=== PATIENT | female | born 1935 | race Caucasian/White ===

== ENCOUNTER 2017-11-26 03:09 | Inpatient (IN) | payer MEDICARE, OTHER ==
[2017-11-26] MEDS: ASPIRIN 81 MG TAB PO (04:00)
[2017-11-26] MEDS: ONDANSETRON 4 MG INJ IV (04:00)
[2017-11-26] MEDS: morphine 2 MG INJ IV (04:01)
[2017-11-26 04:09] LABS: ADD MAN DIFF? NO
[2017-11-26 04:15] LABS: WHITE BLOOD COUNT 9.5 10^3/ul (4.8-10.8)
[2017-11-26 04:15] LABS: BASOPHILS % 0.3 % (0.0-2.0); EOSINOPHILS # 0.1 10^3/ul (0.0-0.5); EOSINOPHILS % 1.3 % (0.0-7.0); HEMATOCRIT 28.2 % (37.0-47.0); HEMOGLOBIN 9.1 g/dl (12.0-16.0); LYMPHOCYTES # 0.9 10^3/ul (0.8-2.9); LYMPHOCYTES % 9.2 % (15.0-51.0); MEAN CORPUSCULAR HEMOGLOBIN 31.3 pg (29.0-33.0); MEAN CORPUSCULAR HGB CONC 32.3 g/dl (32.0-37.0); MEAN CORPUSCULAR VOLUME 96.9 fl (82.0-101.0); MEAN PLATELET VOLUME 10.3 fl (7.4-10.4); MONOCYTE # 0.8 10^3/ul (0.3-0.9); MONOCYTES % 8.5 % (0.0-11.0); NEUTROPHIL # 7.6 10^3/ul (1.6-7.5); NEUTROPHILS % 80.2 % (39.0-77.0); PLATELET COUNT 308 10^3/UL (140-415); RED BLOOD COUNT 2.91 10^6/ul (4.20-5.40); RED CELL DISTRIBUTION WIDTH 12.7 % (11.5-14.5)
[2017-11-26] MEDS: SOD CHLORIDE 0.9% 1,000 ML IV (04:23)
[2017-11-26 04:26] LABS: LACTIC ACID 1.1 mmol/L (0.5-2.0)
[2017-11-26 04:29] LABS: ALANINE AMINOTRANSFERASE 18 IU/L (13-69); ALBUMIN 3.5 g/dl (3.3-4.9); ALBUMIN/GLOBULIN RATIO 1.16; ALKALINE PHOSPHATASE 65 IU/L (42-121); ANION GAP 15 (8-16); ASPARTATE AMINO TRANSFERASE 12 IU/L (15-46); BILIRUBIN,INDIRECT 0.3 mg/dl (0-1.1); BILIRUBIN,TOTAL 0.3 mg/dl (0.2-1.3); BLOOD UREA NITROGEN 57 mg/dl (7-20); CALCIUM 8.7 mg/dl (8.4-10.2); CARBON DIOXIDE 24 mmol/L (21-31); CHLORIDE 98 mmol/L (97-110); CREATININE 2.41 mg/dl (0.44-1.00); GLUCOSE 207 mg/dl (70-220); LIPASE 50 U/L (23-300); POTASSIUM 5.5 mmol/L (3.5-5.1); SODIUM 131 mmol/L (135-144); TOTAL PROTEIN 6.5 g/dl (6.1-8.1)
[2017-11-26 04:38] LABS: TROPONIN-I 0.054 ng/ml (0.000-0.120)
[2017-11-26] MEDS: LABETALOL HCL 20MG INJ IV (05:16)
[2017-11-26 05:19] LABS: ADD UMIC YES; UR ASCORBIC ACID NEGATIVE (NEGATIVE); UR BILIRUBIN (Dip) NEGATIVE (NEGATIVE); UR BLOOD (Dip) NEGATIVE (NEGATIVE); UR CLARITY CLEAR (CLEAR); UR COLOR STRAW (YELLOW); UR GLUCOSE (Dip) 1+ mg/dL (NEGATIVE); UR KETONES (Dip) TRACE mg/dL (NEGATIVE); UR LEUKOCYTE ESTERASE (Dip) NEGATIVE Leu/ul (NEGATIVE); UR NITRITE (Dip) NEGATIVE (NEGATIVE); UR RBC 0 /HPF (0-5); UR SPECIFIC GRAVITY (Dip) 1.006 (1.003-1.030); UR TOTAL PROTEIN (Dip) 2+ mg/dl (NEGATIVE); UR UROBILINOGEN (Dip) NEGATIVE (NEGATIVE); UR WBC 0 /HPF (0-5)
[2017-11-26] MEDS: hydrALAzine 20 MG INJ IV ×2 (06:08→19:10)
[2017-11-26] MEDS ORDERED: DEXTROSE 50% 50 ML SYRINGE IV ×3 (07:00→15:00)
[2017-11-26] MEDS: FAMOTIDINE 20 MG TAB PO (07:32)
[2017-11-26] MEDS: morphine 4 MG/ML VIAL IV (07:33)
[2017-11-26] MEDS: INSULIN REGULAR, HUMAN 100 UNIT/1 ML 3ML VIAL IVP (07:33)
[2017-11-26] MEDS ORDERED: ONDANSETRON 4 MG INJ IV (10:00)
[2017-11-26] MEDS ORDERED: ACETAMINOPHEN 325 MG TAB PO (10:00)
[2017-11-26] MEDS ORDERED: SOD CHLORIDE 0.9% 1,000 ML IV (14:13)
[2017-11-26] MEDS ORDERED: DOCUSATE SODIUM 100 MG CAP PO (14:30)
[2017-11-26] MEDS ORDERED: NACL 0.9% 3 ML SYG IV (14:30)
[2017-11-26] MEDS ORDERED: ACETAMINOPHEN 650 MG SUPP PR (14:30)
[2017-11-26] MEDS ORDERED: morphine 2 MG INJ IV (14:30)
[2017-11-26] MEDS ORDERED: LORAZEPAM 0.5 MG TAB PO (14:30)
[2017-11-26] MEDS ORDERED: HYDROCODONE/APAP (5/325) TAB PO (14:30)
[2017-11-26] MEDS ORDERED: GLUCOSE GEL 15 GRAM TUBE PO ×2 (15:00)
[2017-11-26] MEDS ORDERED: GLUCOSE GEL 15 GRAM TUBE BUCCAL (15:00)
[2017-11-26] MEDS ORDERED: GLUCAGON 1 MG INJ IM (15:00)
[2017-11-26 15:25] LABS: HEMOGLOBIN A1C 9.1 % (0-5.9)
[2017-11-26 15:54] LABS: CREATINE KINASE 47 IU/L (23-200)
[2017-11-26 16:08] LABS: CK INDEX 2.7; CK-MB 1.29 ng/ml (0.0-2.4); TROPONIN-I 0.058 ng/ml (0.000-0.120)
[2017-11-26] MEDS: NA POLYST SULFON 15 GM/60 ML BTL PO (18:13)
[2017-11-26] MEDS: INSULIN ASPART [NOVOLOG] 3 ML PEN SC ×3 (18:22→20:18)
[2017-11-26] MEDS: DIGOXIN 500 MCG INJ IV (19:04)
[2017-11-26] MEDS: DILTIAZEM 25 MG INJ IV ×2 (19:57→23:43)
[2017-11-26] MEDS: LUBIPROSTONE 24 MCG CAP PO (20:16)
[2017-11-26] MEDS: APIXABAN 5 MG TABLET PO (20:16)
[2017-11-26] MEDS: SENNA TAB PO (20:17)
[2017-11-26] MEDS: ISOSORBIDE DINITRATE 10 MG TAB PO (20:17)
[2017-11-26] MEDS: METOPROLOL 50 MG TAB PO (20:17)
[2017-11-26] MEDS: ATORVASTATIN 40 MG TAB PO (20:23)
[2017-11-26] MEDS ORDERED: morphine LIQ (10 MG/5 ML) CUP PO (22:30)
[2017-11-26 22:36] LABS: CREATINE KINASE 53 IU/L (23-200)
[2017-11-26 22:46] LABS: CK INDEX 2.9; CK-MB 1.53 ng/ml (0.0-2.4)
[2017-11-26 22:53] LABS: TROPONIN-I 0.056 ng/ml (0.000-0.120)
[2017-11-26 23:16] LABS: CREATININE,URINE RANDOM 37.31 mg/dl (20-320); PROTEIN/CREAT RATIO 2.25 RATIO
[2017-11-26 23:36] LABS: SODIUM,URINE RANDOM < 13 mmol/L (30-90)
[2017-11-27] MEDS: ACCU-CHEK XX (01:43)
[2017-11-27] MEDS: DILTIAZEM-D5W 125MG/125ML DRIP 125 ML IV (01:57)
[2017-11-27] MEDS: PANTOPRAZOLE (EC) 40 MG TAB PO (05:51)
[2017-11-27 08:13] LABS: ADD MAN DIFF? NO
[2017-11-27 08:15] LABS: WHITE BLOOD COUNT 8.7 10^3/ul (4.8-10.8)
[2017-11-27 08:15] LABS: BASOPHIL # 0.1 10^3/ul (0.0-0.1); BASOPHILS % 0.7 % (0.0-2.0); EOSINOPHILS # 0.1 10^3/ul (0.0-0.5); EOSINOPHILS % 1.2 % (0.0-7.0); HEMATOCRIT 29.7 % (37.0-47.0); HEMOGLOBIN 9.3 g/dl (12.0-16.0); LYMPHOCYTES # 0.8 10^3/ul (0.8-2.9); LYMPHOCYTES % 9.3 % (15.0-51.0); MEAN CORPUSCULAR HEMOGLOBIN 30.8 pg (29.0-33.0); MEAN CORPUSCULAR HGB CONC 31.3 g/dl (32.0-37.0); MEAN CORPUSCULAR VOLUME 98.3 fl (82.0-101.0); MEAN PLATELET VOLUME 10.9 fl (7.4-10.4); MONOCYTE # 0.9 10^3/ul (0.3-0.9); MONOCYTES % 10.7 % (0.0-11.0); NEUTROPHIL # 6.7 10^3/ul (1.6-7.5); NEUTROPHILS % 77.8 % (39.0-77.0); PLATELET COUNT 326 10^3/UL (140-415); RED BLOOD COUNT 3.02 10^6/ul (4.20-5.40); RED CELL DISTRIBUTION WIDTH 13.3 % (11.5-14.5)
[2017-11-27] MEDS: INSULIN GLARGINE [LANTus] (100 UNITS/ML) SYG SC (08:24)
[2017-11-27] MEDS: INSULIN ASPART [NOVOLOG] 3 ML PEN SC ×7 (08:24→20:07)
[2017-11-27 08:36] LABS: HEMOGLOBIN A1C 8.7 % (0-5.9)
[2017-11-27 08:41] LABS: ALANINE AMINOTRANSFERASE 24 IU/L (13-69); ALBUMIN 3.6 g/dl (3.3-4.9); ALKALINE PHOSPHATASE 67 IU/L (42-121); ANION GAP 21 (8-16); ASPARTATE AMINO TRANSFERASE 12 IU/L (15-46); BILIRUBIN,INDIRECT 0.4 mg/dl (0-1.1); BILIRUBIN,TOTAL 0.4 mg/dl (0.2-1.3); BLOOD UREA NITROGEN 45 mg/dl (7-20); CALCIUM 8.8 mg/dl (8.4-10.2); CARBON DIOXIDE 25 mmol/L (21-31); CHLORIDE 95 mmol/L (97-110); CHOL/HDL RATIO 2.6 RATIO; CHOLESTEROL 109 mg/dl (100-200); CREATININE 2.11 mg/dl (0.44-1.00); GLUCOSE 176 mg/dl (70-220); HDL CHOLESTEROL 41 mg/dl (33-92); LDL CHOLESTEROL,CALCULATED 51 mg/dl; MAGNESIUM 2.5 mg/dl (1.7-2.5); POTASSIUM 5.1 mmol/L (3.5-5.1); SODIUM 136 mmol/L (135-144); TRIGLYCERIDES 86 mg/dl (0-149)
[2017-11-27 08:42] LABS: CREATINE KINASE 45 IU/L (23-200)
[2017-11-27] MEDS: ONDANSETRON 4 MG INJ IV ×3 (08:54→18:42)
[2017-11-27] MEDS: MAGNESIUM OXIDE 400 MG TAB PO (08:54)
[2017-11-27] MEDS: LUBIPROSTONE 24 MCG CAP PO ×2 (08:54→20:06)
[2017-11-27] MEDS: ASPIRIN 81 MG TAB PO (08:54)
[2017-11-27] MEDS: APIXABAN 5 MG TABLET PO ×2 (08:55→20:07)
[2017-11-27] MEDS: LINAGLIPTIN 5 MG TABLET PO (08:56)
[2017-11-27 08:57] LABS: FREE THYROXINE INDEX (Calc) 3.88 ug/ml (0.65-3.89); T3 UPTAKE 44.6 % (23.5-40.5); T4 (THYROXINE) 8.7 ug/dl (5.5-11.0)
[2017-11-27] MEDS: FUROSEMIDE 20 MG INJ IV (08:58)
[2017-11-27] MEDS: ISOSORBIDE DINITRATE 10 MG TAB PO ×3 (08:59→20:08)
[2017-11-27] MEDS: METOPROLOL 50 MG TAB PO ×3 (08:59→20:08)
[2017-11-27] MEDS ORDERED: FUROSEMIDE 20 MG TAB PO (09:00)
[2017-11-27] MEDS ORDERED: NON-FORMULARY/PATIENT OWN MED (Sitagliptin* (Januvia*) 50 MG) PO (09:00)
[2017-11-27] MEDS: DILTIAZEM 60 MG TAB PO (13:43)
[2017-11-27] MEDS: SENNA TAB PO (20:06)
[2017-11-27] MEDS: ATORVASTATIN 40 MG TAB PO (20:07)
[2017-11-27] MEDS: traMADol 50 MG TAB PO (22:15)
[2017-11-27] MEDS: DILTIAZEM 30 MG TAB PO (22:29)
[2017-11-28] MEDS: ACCU-CHEK XX (01:08)
[2017-11-28] MEDS: DILTIAZEM 30 MG TAB PO ×3 (05:25→22:21)
[2017-11-28] MEDS: PANTOPRAZOLE (EC) 40 MG TAB PO (05:26)
[2017-11-28] MEDS: INSULIN ASPART [NOVOLOG] 3 ML PEN SC ×7 (07:55→20:25)
[2017-11-28] MEDS: LUBIPROSTONE 24 MCG CAP PO ×2 (08:40→20:23)
[2017-11-28] MEDS: APIXABAN 5 MG TABLET PO ×2 (08:40→20:24)
[2017-11-28] MEDS: ASPIRIN 81 MG TAB PO (08:41)
[2017-11-28] MEDS: FUROSEMIDE 20 MG INJ IV (08:41)
[2017-11-28] MEDS: MAGNESIUM OXIDE 400 MG TAB PO (08:41)
[2017-11-28 08:42] LABS: ANION GAP 12 (8-16); BLOOD UREA NITROGEN 40 mg/dl (7-20); CALCIUM 8.7 mg/dl (8.4-10.2); CARBON DIOXIDE 28 mmol/L (21-31); CHLORIDE 101 mmol/L (97-110); CREATININE 2.15 mg/dl (0.44-1.00); GLUCOSE 131 mg/dl (70-220); POTASSIUM 4.4 mmol/L (3.5-5.1); SODIUM 137 mmol/L (135-144)
[2017-11-28] MEDS: METOPROLOL 50 MG TAB PO ×3 (08:42→20:25)
[2017-11-28] MEDS: ISOSORBIDE DINITRATE 10 MG TAB PO ×3 (08:42→20:25)
[2017-11-28] MEDS: LINAGLIPTIN 5 MG TABLET PO (08:42)
[2017-11-28] MEDS: INSULIN GLARGINE [LANTus] (100 UNITS/ML) SYG SC (10:09)
[2017-11-28] MEDS: ONDANSETRON 4 MG INJ IV ×2 (10:16→18:26)
[2017-11-28] MEDS: traMADol 50 MG TAB PO ×2 (12:40→22:20)
[2017-11-28] MEDS: D5W-0.45 NACL + KCL 20 MEQ 1,000 ML IV (14:37)
[2017-11-28] MEDS: SENNA TAB PO (20:23)
[2017-11-28] MEDS: ATORVASTATIN 40 MG TAB PO (20:25)
[2017-11-28] MEDS: DOXAZOSIN 2 MG TAB PO (20:36)
[2017-11-29] MEDS: HYDROCODONE/APAP (5/325) TAB PO ×2 (00:55→14:10)
[2017-11-29] MEDS: hydrALAzine 20 MG INJ IV (01:05)
[2017-11-29] MEDS: ACCU-CHEK XX (01:06)
[2017-11-29] MEDS: D5W-0.45 NACL + KCL 20 MEQ 1,000 ML IV (03:57)
[2017-11-29] MEDS: PANTOPRAZOLE (EC) 40 MG TAB PO (05:34)
[2017-11-29] MEDS: FUROSEMIDE 20 MG TAB PO (05:34)
[2017-11-29] MEDS: DILTIAZEM 30 MG TAB PO ×3 (05:35→21:41)
[2017-11-29] MEDS: INSULIN ASPART [NOVOLOG] 3 ML PEN SC ×7 (07:42→21:00)
[2017-11-29] MEDS: INSULIN GLARGINE [LANTus] (100 UNITS/ML) SYG SC (07:53)
[2017-11-29] MEDS: LUBIPROSTONE 24 MCG CAP PO ×2 (08:20→21:40)
[2017-11-29] MEDS: ISOSORBIDE DINITRATE 10 MG TAB PO ×3 (08:21→21:40)
[2017-11-29] MEDS: APIXABAN 5 MG TABLET PO ×2 (08:21→20:18)
[2017-11-29] MEDS: ASPIRIN 81 MG TAB PO (08:21)
[2017-11-29] MEDS: MAGNESIUM OXIDE 400 MG TAB PO (08:21)
[2017-11-29] MEDS: METOPROLOL 50 MG TAB PO ×3 (08:22→20:20)
[2017-11-29] MEDS: LINAGLIPTIN 5 MG TABLET PO (08:22)
[2017-11-29 09:03] LABS: ADD MAN DIFF? NO
[2017-11-29 09:11] LABS: WHITE BLOOD COUNT 7.7 10^3/ul (4.8-10.8)
[2017-11-29 09:11] LABS: BASOPHILS % 0.3 % (0.0-2.0); EOSINOPHILS # 0.1 10^3/ul (0.0-0.5); EOSINOPHILS % 0.8 % (0.0-7.0); HEMOGLOBIN 8.5 g/dl (12.0-16.0); LYMPHOCYTES # 0.6 10^3/ul (0.8-2.9); LYMPHOCYTES % 8.1 % (15.0-51.0); MEAN CORPUSCULAR HEMOGLOBIN 31.7 pg (29.0-33.0); MEAN CORPUSCULAR HGB CONC 31.5 g/dl (32.0-37.0); MEAN CORPUSCULAR VOLUME 100.7 fl (82.0-101.0); MEAN PLATELET VOLUME 10.3 fl (7.4-10.4); MONOCYTE # 0.9 10^3/ul (0.3-0.9); MONOCYTES % 11.6 % (0.0-11.0); NEUTROPHILS % 78.5 % (39.0-77.0); PLATELET COUNT 279 10^3/UL (140-415); RED BLOOD COUNT 2.68 10^6/ul (4.20-5.40); RED CELL DISTRIBUTION WIDTH 13.3 % (11.5-14.5)
[2017-11-29 09:39] LABS: URIC ACID 8.8 mg/dl (3.1-7.9)
[2017-11-29 09:42] LABS: ANION GAP 12 (8-16); BLOOD UREA NITROGEN 40 mg/dl (7-20); CALCIUM 8.3 mg/dl (8.4-10.2); CARBON DIOXIDE 29 mmol/L (21-31); CHLORIDE 99 mmol/L (97-110); CREATININE 2.08 mg/dl (0.44-1.00); GLUCOSE 209 mg/dl (70-220); POTASSIUM 4.9 mmol/L (3.5-5.1); SODIUM 135 mmol/L (135-144)
[2017-11-29 09:43] LABS: B-TYPE NATRIURETIC PEPTIDE 19900 PG/ML (0-450)
[2017-11-29] MEDS: FUROSEMIDE 20 MG INJ IV (17:27)
[2017-11-29] MEDS: ATORVASTATIN 40 MG TAB PO (20:17)
[2017-11-29] MEDS ORDERED: ALBUMIN HUMAN 25% 100 ML IV (21:00)
[2017-11-29] MEDS ORDERED: METOCLOPRAMIDE 10 MG INJ IV (21:00)
[2017-11-29] MEDS: SENNA TAB PO (21:40)
[2017-11-29] MEDS: DOXAZOSIN 2 MG TAB PO (21:41)
[2017-11-30] MEDS: ACETAMINOPHEN 325 MG TAB PO (00:36)
[2017-11-30] MEDS: ACCU-CHEK XX (02:00)
[2017-11-30] MEDS: DILTIAZEM 30 MG TAB PO ×3 (06:03→21:47)
[2017-11-30] MEDS: FUROSEMIDE 20 MG INJ IV ×2 (06:04→18:09)
[2017-11-30 06:09] LABS: ANION GAP 11 (8-16); BLOOD UREA NITROGEN 40 mg/dl (7-20); CALCIUM 8.3 mg/dl (8.4-10.2); CARBON DIOXIDE 27 mmol/L (21-31); CHLORIDE 99 mmol/L (97-110); GLUCOSE 159 mg/dl (70-220); POTASSIUM 5.1 mmol/L (3.5-5.1); SODIUM 132 mmol/L (135-144)
[2017-11-30] MEDS: PANTOPRAZOLE (EC) 40 MG TAB PO (06:16)
[2017-11-30] MEDS: INSULIN ASPART [NOVOLOG] 3 ML PEN SC ×8 (08:00→20:59)
[2017-11-30] MEDS: METOPROLOL 50 MG TAB PO ×3 (08:44→20:53)
[2017-11-30] MEDS: MAGNESIUM OXIDE 400 MG TAB PO (08:44)
[2017-11-30] MEDS: ISOSORBIDE DINITRATE 10 MG TAB PO ×3 (08:44→20:53)
[2017-11-30] MEDS: LINAGLIPTIN 5 MG TABLET PO (08:44)
[2017-11-30] MEDS: APIXABAN 5 MG TABLET PO ×2 (08:44→20:53)
[2017-11-30] MEDS: LUBIPROSTONE 24 MCG CAP PO ×2 (08:44→20:53)
[2017-11-30] MEDS: INSULIN GLARGINE [LANTus] (100 UNITS/ML) SYG SC (08:50)
[2017-11-30] MEDS: ASPIRIN 81 MG TAB PO (08:56)
[2017-11-30] MEDS: ATORVASTATIN 40 MG TAB PO (20:53)
[2017-11-30] MEDS: DOXAZOSIN 2 MG TAB PO (20:54)
[2017-11-30] MEDS: SENNA TAB PO (20:54)
[2017-11-30] MEDS ORDERED: MISOPROSTOL 100 MCG TAB PO (22:00)
[2017-11-30] MEDS ORDERED: MISOPROSTOL 200 MCG TAB PO (22:49)
[2017-12-01] MEDS: MISOPROSTOL 200 MCG TAB PO ×3 (00:20→17:56)
[2017-12-01] MEDS: CLONIDINE 0.2 MG/24 HR PATCH TRANSDERM (00:20)
[2017-12-01] MEDS: ALLOPURINOL 100 MG TAB GTB ×3 (00:21→21:16)
[2017-12-01] MEDS: ACCU-CHEK XX (02:00)
[2017-12-01] MEDS: FUROSEMIDE 20 MG INJ IV ×2 (06:43→17:56)
[2017-12-01] MEDS: PANTOPRAZOLE (EC) 40 MG TAB PO (06:44)
[2017-12-01] MEDS: DILTIAZEM 30 MG TAB PO ×3 (06:44→21:15)
[2017-12-01 08:22] LABS: B-TYPE NATRIURETIC PEPTIDE 15700 PG/ML (0-450)
[2017-12-01] MEDS: INSULIN GLARGINE [LANTus] (100 UNITS/ML) SYG SC (08:48)
[2017-12-01] MEDS: INSULIN ASPART [NOVOLOG] 3 ML PEN SC ×7 (08:48→21:00)
[2017-12-01 09:10] LABS: IRON 31 ug/dl (35-150)
[2017-12-01 09:39] LABS: ALANINE AMINOTRANSFERASE 14 IU/L (13-69); ALBUMIN 3.2 g/dl (3.3-4.9); ALBUMIN/GLOBULIN RATIO 1.23; ALKALINE PHOSPHATASE 50 IU/L (42-121); ANION GAP 13 (8-16); ASPARTATE AMINO TRANSFERASE 11 IU/L (15-46); BILIRUBIN,INDIRECT 0.3 mg/dl (0-1.1); BILIRUBIN,TOTAL 0.3 mg/dl (0.2-1.3); BLOOD UREA NITROGEN 43 mg/dl (7-20); CALCIUM 8.4 mg/dl (8.4-10.2); CARBON DIOXIDE 27 mmol/L (21-31); CHLORIDE 98 mmol/L (97-110); CREATININE 2.31 mg/dl (0.44-1.00); GLUCOSE 189 mg/dl (70-220); PHOSPHORUS 3.8 mg/dl (2.5-4.9); POTASSIUM 4.9 mmol/L (3.5-5.1); SODIUM 133 mmol/L (135-144); TOTAL PROTEIN 5.8 g/dl (6.1-8.1)
[2017-12-01] MEDS: LUBIPROSTONE 24 MCG CAP PO ×2 (09:44→21:23)
[2017-12-01] MEDS: LINAGLIPTIN 5 MG TABLET PO (09:45)
[2017-12-01] MEDS: MAGNESIUM OXIDE 400 MG TAB PO (09:45)
[2017-12-01] MEDS: ASPIRIN 81 MG TAB PO (09:45)
[2017-12-01] MEDS: APIXABAN 5 MG TABLET PO ×2 (09:45→21:16)
[2017-12-01] MEDS: METOPROLOL 50 MG TAB PO ×3 (09:46→21:16)
[2017-12-01] MEDS: ONDANSETRON 4 MG INJ IV (09:47)
[2017-12-01] MEDS: ISOSORBIDE DINITRATE 10 MG TAB PO ×3 (09:47→21:14)
[2017-12-01 10:27] LABS: % IRON SATURATION 12 % SAT (22-52)
[2017-12-01 10:35] LABS: TOTAL IRON BINDING CAPACITY 252 ug/dl (241-421)
[2017-12-01 11:53] LABS: HEMOGLOBIN A1C 8.7 % (0-5.9)
[2017-12-01] MEDS: HYDROCODONE/APAP (5/325) TAB PO (13:13)
[2017-12-01] MEDS: DOXAZOSIN 2 MG TAB PO (21:15)
[2017-12-01] MEDS: ATORVASTATIN 40 MG TAB PO (21:15)
[2017-12-01] MEDS: SENNA TAB PO (21:17)
[2017-12-01] MEDS: SOD FERRIC GLUC COMPLX 125 MG in SOD CHLORIDE 0.9% 100 ML IVPB (21:23)
[2017-12-02] MEDS: ACCU-CHEK XX (02:00)
[2017-12-02] MEDS: HYDROCODONE/APAP (5/325) TAB PO (03:20)
[2017-12-02] MEDS: FUROSEMIDE 20 MG INJ IV ×2 (05:57→17:41)
[2017-12-02] MEDS: DILTIAZEM 30 MG TAB PO ×2 (05:57→15:32)
[2017-12-02] MEDS: PANTOPRAZOLE (EC) 40 MG TAB PO (05:57)
[2017-12-02] MEDS: INSULIN ASPART [NOVOLOG] 3 ML PEN SC ×6 (08:00→17:41)
[2017-12-02] MEDS: LUBIPROSTONE 24 MCG CAP PO (08:26)
[2017-12-02] MEDS: MISOPROSTOL 200 MCG TAB PO ×2 (08:26→17:41)
[2017-12-02] MEDS: ALLOPURINOL 100 MG TAB GTB (08:26)
[2017-12-02] MEDS: ISOSORBIDE DINITRATE 10 MG TAB PO ×2 (08:27→12:43)
[2017-12-02] MEDS: METOPROLOL 50 MG TAB PO ×2 (08:27→12:41)
[2017-12-02] MEDS: MAGNESIUM OXIDE 400 MG TAB PO (08:27)
[2017-12-02] MEDS: APIXABAN 5 MG TABLET PO (08:27)
[2017-12-02] MEDS: ASPIRIN 81 MG TAB PO (08:28)
[2017-12-02] MEDS: LINAGLIPTIN 5 MG TABLET PO (08:33)
[2017-12-02] MEDS: INSULIN GLARGINE [LANTus] (100 UNITS/ML) SYG SC (08:37)
[2017-12-02] MEDS: SOD FERRIC GLUC COMPLX 125 MG in SOD CHLORIDE 0.9% 100 ML IVPB (17:06)
[2017-12-02] MEDS ORDERED: NACL 0.9% 3 ML SYG IV (18:30)
[2017-12-03] MEDS ORDERED: INSULIN GLARGINE [LANTus] (100 UNITS/ML) SYG SC (08:00)
== END 2017-12-02 18:30 | DRG 308 ==
LOC: E/R 03:09 → TEL 09:55 → 2NE 11-29 19:19
DX: I48.92 Unspecified atrial flutter (principal); I50.23 Acute on chronic systolic (congestive) heart failure; I13.0 Hypertensive heart and chronic kidney disease with heart failure and stage 1 through stage 4 chronic kidney disease, or unspecified chronic kidney disease; E87.1 Hypo-osmolality and hyponatremia; N17.9 Acute kidney failure, unspecified; N18.3 Chronic kidney disease, stage 3 (moderate); E11.22 Type 2 diabetes mellitus with diabetic chronic kidney disease; I25.10 Atherosclerotic heart disease of native coronary artery without angina pectoris; E78.00 Pure hypercholesterolemia, unspecified; K21.9 Gastro-esophageal reflux disease without esophagitis; E11.21 Type 2 diabetes mellitus with diabetic nephropathy; I25.2 Old myocardial infarction; I27.20 Pulmonary hypertension, unspecified; K59.00 Constipation, unspecified; I48.91 Unspecified atrial fibrillation; E87.5 Hyperkalemia; D50.9 Iron deficiency anemia, unspecified; D63.8 Anemia in other chronic diseases classified elsewhere; Z95.5 Presence of coronary angioplasty implant and graft; Z79.4 Long term (current) use of insulin; Z79.82 Long term (current) use of aspirin; Z91.81 History of falling
CPT/HCPCS: 36415; 71045; 72170; 73560; 74176; 76775; 80048; 80053; 80061; 81001; 81003; 82550; 82553; 82570; 82962; 83036; 83540; 83605; 83690; 83735; 83880; 84100; 84300; 84436; 84443; 84479; 84484; 84560; 85025; 87081; 89190; 93005; 93306; 96361; 96374; 96375; 96376; 97110; 97162; 97165; 97530; 99285-25; G0378

== ENCOUNTER 2017-12-02 18:40 | Inpatient (IN) | payer MEDICARE, OTHER ==
[2017-12-02] MEDS ORDERED: morphine LIQ (10 MG/5 ML) CUP PO (20:30)
[2017-12-02] MEDS ORDERED: ACETAMINOPHEN 650 MG SUPP PR (20:30)
[2017-12-02] MEDS ORDERED: DOCUSATE SODIUM 100 MG CAP PO (20:30)
[2017-12-02] MEDS ORDERED: NACL 0.9% 3 ML SYG IV (20:30)
[2017-12-02] MEDS ORDERED: hydrALAzine 20 MG INJ IV (20:30)
[2017-12-02] MEDS ORDERED: LORAZEPAM 0.5 MG TAB PO (20:30)
[2017-12-02] MEDS ORDERED: HYDROCODONE/APAP (5/325) TAB PO (20:30)
[2017-12-02] MEDS: ATORVASTATIN 40 MG TAB PO (20:41)
[2017-12-02] MEDS: APIXABAN 5 MG TABLET PO (20:42)
[2017-12-02] MEDS: ALLOPURINOL 100 MG TAB GTB (20:42)
[2017-12-02] MEDS ORDERED: traMADol 50 MG TAB PO (21:00)
[2017-12-02] MEDS ORDERED: GLUCOSE GEL 15 GRAM TUBE BUCCAL (21:00)
[2017-12-02] MEDS ORDERED: GLUCAGON 1 MG INJ IM (21:00)
[2017-12-02] MEDS ORDERED: GLUCOSE GEL 15 GRAM TUBE PO ×2 (21:00)
[2017-12-02] MEDS ORDERED: DEXTROSE 50% 50 ML SYRINGE IV ×2 (21:00)
[2017-12-02] MEDS: INSULIN ASPART [NOVOLOG] 3 ML PEN SC (21:30)
[2017-12-02] MEDS: SENNA TAB PO (21:39)
[2017-12-02] MEDS: ISOSORBIDE DINITRATE 10 MG TAB PO (21:40)
[2017-12-02] MEDS: METOPROLOL 50 MG TAB PO (21:41)
[2017-12-02] MEDS: DILTIAZEM 30 MG TAB PO (21:41)
[2017-12-02] MEDS: LUBIPROSTONE 24 MCG CAP PO (21:42)
[2017-12-02] MEDS: DOXAZOSIN 2 MG TAB PO (21:42)
[2017-12-02] MEDS: ONDANSETRON 4 MG INJ IV (21:46)
[2017-12-02] MEDS ORDERED: BISACODYL 10 MG SUPP PR (22:30)
[2017-12-02] MEDS ORDERED: LACTULOSE 30ML CUP PO (22:30)
[2017-12-02 23:47] LABS: ADD UMIC YES; UR ASCORBIC ACID NEGATIVE (NEGATIVE); UR BACTERIA FEW /HPF (NONE SEEN); UR BILIRUBIN (Dip) NEGATIVE (NEGATIVE); UR BLOOD (Dip) NEGATIVE (NEGATIVE); UR CLARITY CLEAR (CLEAR); UR COLOR YELLOW (YELLOW); UR GLUCOSE (Dip) NEGATIVE (NEGATIVE); UR KETONES (Dip) NEGATIVE (NEGATIVE); UR LEUKOCYTE ESTERASE (Dip) NEGATIVE Leu/ul (NEGATIVE); UR MUCUS FEW /HPF (NONE SEEN); UR NITRITE (Dip) NEGATIVE (NEGATIVE); UR RBC 1 /HPF (0-5); UR TOTAL PROTEIN (Dip) 1+ mg/dl (NEGATIVE); UR UROBILINOGEN (Dip) NEGATIVE (NEGATIVE); UR WBC 2 /HPF (0-5)
[2017-12-03] MEDS: ACCU-CHEK XX (02:00)
[2017-12-03 06:31] LABS: ADD MAN DIFF? NO
[2017-12-03 06:37] LABS: WHITE BLOOD COUNT 6.3 10^3/ul (4.8-10.8)
[2017-12-03 06:37] LABS: BASOPHILS % 0.3 % (0.0-2.0); EOSINOPHILS # 0.1 10^3/ul (0.0-0.5); EOSINOPHILS % 1.6 % (0.0-7.0); HEMATOCRIT 24.1 % (37.0-47.0); HEMOGLOBIN 7.8 g/dl (12.0-16.0); LYMPHOCYTES # 1.2 10^3/ul (0.8-2.9); LYMPHOCYTES % 19.2 % (15.0-51.0); MEAN CORPUSCULAR HGB CONC 32.4 g/dl (32.0-37.0); MEAN CORPUSCULAR VOLUME 98.8 fl (82.0-101.0); MEAN PLATELET VOLUME 9.9 fl (7.4-10.4); MONOCYTE # 0.8 10^3/ul (0.3-0.9); MONOCYTES % 12.5 % (0.0-11.0); NEUTROPHIL # 4.2 10^3/ul (1.6-7.5); NEUTROPHILS % 65.9 % (39.0-77.0); PLATELET COUNT 220 10^3/UL (140-415); RED BLOOD COUNT 2.44 10^6/ul (4.20-5.40); RED CELL DISTRIBUTION WIDTH 13.1 % (11.5-14.5)
[2017-12-03] MEDS: PANTOPRAZOLE (EC) 40 MG TAB PO (06:42)
[2017-12-03] MEDS: DILTIAZEM 30 MG TAB PO ×3 (06:46→21:53)
[2017-12-03] MEDS: FUROSEMIDE 20 MG INJ IV ×2 (06:46→19:14)
[2017-12-03] MEDS: MAGNESIUM HYDROXIDE 30ML CUP PO (06:47)
[2017-12-03 06:52] LABS: ALANINE AMINOTRANSFERASE 17 IU/L (13-69); ALBUMIN 2.8 g/dl (3.3-4.9); ALBUMIN/GLOBULIN RATIO 1.12; ALKALINE PHOSPHATASE 43 IU/L (42-121); ANION GAP 10 (8-16); ASPARTATE AMINO TRANSFERASE 9 IU/L (15-46); BILIRUBIN,INDIRECT 0.2 mg/dl (0-1.1); BILIRUBIN,TOTAL 0.2 mg/dl (0.2-1.3); BLOOD UREA NITROGEN 53 mg/dl (7-20); CALCIUM 8.3 mg/dl (8.4-10.2); CARBON DIOXIDE 28 mmol/L (21-31); CHLORIDE 98 mmol/L (97-110); CREATININE 2.58 mg/dl (0.44-1.00); GLUCOSE 71 mg/dl (70-220); POTASSIUM 4.4 mmol/L (3.5-5.1); SODIUM 132 mmol/L (135-144); TOTAL PROTEIN 5.3 g/dl (6.1-8.1)
[2017-12-03] MEDS: INSULIN ASPART [NOVOLOG] 3 ML PEN SC ×7 (07:35→21:00)
[2017-12-03] MEDS ORDERED: MISOPROSTOL 100 MCG TAB PO (07:35)
[2017-12-03] MEDS: INSULIN GLARGINE [LANTus] (100 UNITS/ML) SYG SC (08:00)
[2017-12-03] MEDS: LUBIPROSTONE 24 MCG CAP PO ×2 (10:07→21:52)
[2017-12-03] MEDS: MAGNESIUM OXIDE 400 MG TAB PO (10:07)
[2017-12-03] MEDS: ALLOPURINOL 100 MG TAB GTB ×2 (10:08→21:54)
[2017-12-03] MEDS: METOPROLOL 50 MG TAB PO ×3 (10:08→21:55)
[2017-12-03] MEDS: ASPIRIN 81 MG TAB PO (10:08)
[2017-12-03] MEDS: LINAGLIPTIN 5 MG TABLET PO (10:08)
[2017-12-03] MEDS: APIXABAN 5 MG TABLET PO ×2 (10:09→22:02)
[2017-12-03] MEDS: MISOPROSTOL 100 MCG TAB PO ×2 (10:09→17:39)
[2017-12-03] MEDS: ISOSORBIDE DINITRATE 10 MG TAB PO ×3 (10:11→21:53)
[2017-12-03 16:24] LABS: IMMEDIATE SPIN CROSSMATCH 1 1
[2017-12-03] MEDS ORDERED: CLONIDINE 0.1 MG/24 HR PATCH TRANSDERM (19:00)
[2017-12-03] MEDS: SOD FERRIC GLUC COMPLX 125 MG in SOD CHLORIDE 0.9% 100 ML IVPB (19:40)
[2017-12-03] MEDS: ATORVASTATIN 40 MG TAB PO (21:54)
[2017-12-03] MEDS: DOXAZOSIN 2 MG TAB PO (21:54)
[2017-12-03] MEDS: SENNA TAB PO (21:55)
[2017-12-03] MEDS: CLONIDINE 0.1 MG/24 HR PATCH TRANSDERM (23:26)
[2017-12-04] MEDS: ACETAMINOPHEN 325 MG TAB PO ×2 (00:54→12:20)
[2017-12-04] MEDS: ACCU-CHEK XX (02:00)
[2017-12-04] MEDS: ONDANSETRON 4 MG INJ IV (03:35)
[2017-12-04] MEDS: PANTOPRAZOLE (EC) 40 MG TAB PO (06:52)
[2017-12-04] MEDS: FUROSEMIDE 20 MG TAB PO ×2 (06:52→17:54)
[2017-12-04] MEDS: DILTIAZEM 30 MG TAB PO ×2 (06:52→15:15)
[2017-12-04] MEDS: MISOPROSTOL 100 MCG TAB PO ×2 (08:03→17:54)
[2017-12-04] MEDS: INSULIN ASPART [NOVOLOG] 3 ML PEN SC ×6 (08:06→16:50)
[2017-12-04] MEDS: INSULIN GLARGINE [LANTus] (100 UNITS/ML) SYG SC (08:08)
[2017-12-04] MEDS: ALLOPURINOL 100 MG TAB GTB (09:16)
[2017-12-04] MEDS: ISOSORBIDE DINITRATE 10 MG TAB PO ×2 (09:16→12:19)
[2017-12-04] MEDS: ASPIRIN 81 MG TAB PO (09:16)
[2017-12-04] MEDS: MAGNESIUM OXIDE 400 MG TAB PO (09:16)
[2017-12-04] MEDS: LINAGLIPTIN 5 MG TABLET PO (09:16)
[2017-12-04] MEDS: LUBIPROSTONE 24 MCG CAP PO (09:16)
[2017-12-04] MEDS: APIXABAN 5 MG TABLET PO (09:16)
[2017-12-04] MEDS: METOPROLOL 50 MG TAB PO ×2 (09:17→12:19)
[2017-12-04] MEDS: NITROGLYCERIN (SL) 0.4 MG TAB SL (19:11)
[2017-12-04 19:49] LABS: ANION GAP 12 (8-16); BLOOD UREA NITROGEN 56 mg/dl (7-20); CALCIUM 8.2 mg/dl (8.4-10.2); CARBON DIOXIDE 26 mmol/L (21-31); CHLORIDE 96 mmol/L (97-110); CREATINE KINASE 29 IU/L (23-200); CREATININE 2.34 mg/dl (0.44-1.00); GLUCOSE 162 mg/dl (70-220); POTASSIUM 5.3 mmol/L (3.5-5.1); SODIUM 129 mmol/L (135-144)
[2017-12-04 20:00] LABS: CK INDEX 1.5; CK-MB 0.43 ng/ml (0.0-2.4); TROPONIN-I < 0.010 ng/ml (0.000-0.120)
[2017-12-04 20:02] LABS: D-DIMER 2077.23 ng/ml (<460)
[2017-12-04] MEDS ORDERED: LUBIPROSTONE 24 MCG CAP PO (21:30)
[2017-12-04] MEDS ORDERED: traMADol 50 MG TAB PO (21:30)
[2017-12-04] MEDS ORDERED: LORAZEPAM 0.5 MG TAB PO (21:30)
[2017-12-05] MEDS ORDERED: NON-FORMULARY/PATIENT OWN MED (Aspirin (Low Dose Aspirin) 81 MG) PO (09:00)
[2017-12-05] MEDS ORDERED: MAGNESIUM OXIDE 400 MG TAB PO (09:00)
[2017-12-05] MEDS ORDERED: NON-FORMULARY/PATIENT OWN MED (Esomeprazole Mag Trihydrate (Nexium) 40 MG) PO (09:00)
[2017-12-05] MEDS ORDERED: INSULIN GLARGINE [LANTus] (100 UNITS/ML) SYG SC (09:00)
[2017-12-05] MEDS ORDERED: METOPROLOL 50 MG TAB PO (09:00)
[2017-12-05] MEDS ORDERED: NON-FORMULARY/PATIENT OWN MED (Sitagliptin* (Januvia*) 50 MG) PO (09:00)
[2017-12-05] MEDS ORDERED: NON-FORMULARY/PATIENT OWN MED (Linagliptin (Tradjenta) 5 MG) PO (09:00)
[2017-12-05] MEDS ORDERED: FUROSEMIDE 20 MG TAB PO (10:00)
[2017-12-05] MEDS ORDERED: ATORVASTATIN 40 MG TAB PO (21:00)
[2017-12-05] MEDS ORDERED: SENNA TAB PO (21:00)
[2017-12-07] MEDS ORDERED: CLONIDINE 0.2 MG/24 HR PATCH TRANSDERM (22:00)
== END 2017-12-04 19:29 | disposition short-term general hospital (02) | DRG 945 ==
LOC: VRC 12-04 10:39
PROVIDERS: Family Medicine
PROC: F07Z5ZZ Bed Mobility Treatment (ICD-10-PCS; principal; 2017-12-03)
PROC: F07Z8ZZ Transfer Training Treatment (ICD-10-PCS; 2017-12-03)
PROC: F07Z9ZZ Gait Training/Functional Ambulation Treatment (ICD-10-PCS; 2017-12-03)
PROC: F08Z2ZZ Grooming/Personal Hygiene Treatment (ICD-10-PCS; 2017-12-03)
PROC: F08Z1ZZ Dressing Techniques Treatment (ICD-10-PCS; 2017-12-03)
PROC: F08Z0ZZ Bathing/Showering Techniques Treatment (ICD-10-PCS; 2017-12-03)
PROC: 30233N1 Transfusion of Nonautologous Red Blood Cells into Peripheral Vein, Percutaneous Approach (ICD-10-PCS; 2017-12-03)
DX: R53.81 Other malaise (principal); I50.23 Acute on chronic systolic (congestive) heart failure; I13.0 Hypertensive heart and chronic kidney disease with heart failure and stage 1 through stage 4 chronic kidney disease, or unspecified chronic kidney disease; I48.92 Unspecified atrial flutter; E87.1 Hypo-osmolality and hyponatremia; N17.9 Acute kidney failure, unspecified; R26.89 Other abnormalities of gait and mobility; R07.9 Chest pain, unspecified; R00.2 Palpitations; D63.1 Anemia in chronic kidney disease; D50.9 Iron deficiency anemia, unspecified; E11.22 Type 2 diabetes mellitus with diabetic chronic kidney disease; E11.21 Type 2 diabetes mellitus with diabetic nephropathy; E66.01 Morbid (severe) obesity due to excess calories; E78.5 Hyperlipidemia, unspecified; I25.10 Atherosclerotic heart disease of native coronary artery without angina pectoris; I27.20 Pulmonary hypertension, unspecified; I48.91 Unspecified atrial fibrillation; K59.00 Constipation, unspecified; M19.90 Unspecified osteoarthritis, unspecified site; N18.3 Chronic kidney disease, stage 3 (moderate); Z74.09 Other reduced mobility; Z96.652 Presence of left artificial knee joint; Z91.81 History of falling; Z95.1 Presence of aortocoronary bypass graft; Z68.35 Body mass index [BMI] 35.0-35.9, adult; Z95.5 Presence of coronary angioplasty implant and graft; Z79.4 Long term (current) use of insulin; Z79.01 Long term (current) use of anticoagulants; Z79.82 Long term (current) use of aspirin
CPT/HCPCS: 36430; 71045; 80048; 80053; 81001; 82550; 82553; 82962; 84484; 85025; 85378; 86850; 86900; 86901; 86920; 87081; 87086; 93005; 97110; 97116; 97163; 97167; 97530; 97535

== ENCOUNTER 2017-12-04 19:54 | Inpatient (IN) | payer MEDICARE, OTHER ==
[2017-12-04] MEDS: INSULIN ASPART [NOVOLOG] 3 ML PEN SC (21:30)
[2017-12-04 21:54] LABS: D-DIMER 2051.24 ng/ml (<460)
[2017-12-04] MEDS ORDERED: GLUCOSE GEL 15 GRAM TUBE BUCCAL (22:00)
[2017-12-04] MEDS ORDERED: GLUCOSE GEL 15 GRAM TUBE PO ×2 (22:00)
[2017-12-04] MEDS ORDERED: DEXTROSE 50% 50 ML SYRINGE IV ×2 (22:00)
[2017-12-04] MEDS ORDERED: GLUCAGON 1 MG INJ IM (22:00)
[2017-12-04 23:15] LABS: MAGNESIUM 1.8 mg/dl (1.7-2.5)
[2017-12-04 23:27] LABS: TROPONIN-I 0.011 ng/ml (0.000-0.120)
[2017-12-04] MEDS ORDERED: morphine LIQ (10 MG/5 ML) CUP PO (23:30)
[2017-12-04] MEDS ORDERED: BISACODYL 10 MG SUPP PR (23:30)
[2017-12-04] MEDS ORDERED: DOCUSATE SODIUM 100 MG CAP PO (23:30)
[2017-12-04] MEDS ORDERED: MAGNESIUM HYDROXIDE 30ML CUP PO (23:30)
[2017-12-04] MEDS ORDERED: hydrALAzine 20 MG INJ IV (23:30)
[2017-12-04] MEDS ORDERED: ACETAMINOPHEN 650 MG SUPP PR (23:30)
[2017-12-04] MEDS ORDERED: traMADol 50 MG TAB PO (23:30)
[2017-12-04] MEDS ORDERED: LORAZEPAM 0.5 MG TAB PO (23:30)
[2017-12-04] MEDS: ALBUTEROL/IPRATROPIUM (NEB) 3 ML AMP HHN (23:58)
[2017-12-05] MEDS ORDERED: NITROGLYCERIN (SL) 0.4 MG TAB SL
[2017-12-05] MEDS: ONDANSETRON 4 MG INJ IV (00:49)
[2017-12-05] MEDS: SODIUM CHLORIDE 1 GM TAB PO ×4 (00:49→21:39)
[2017-12-05] MEDS: FUROSEMIDE 20 MG INJ IV ×3 (00:50→18:23)
[2017-12-05] MEDS: ENOXAPARIN 40 MG/0.4 ML SYG SC ×2 (01:19→08:37)
[2017-12-05] MEDS: ACCU-CHEK XX (01:21)
[2017-12-05 01:48] LABS: TROPONIN-I 0.014 ng/ml (0.000-0.120)
[2017-12-05] MEDS ORDERED: FUROSEMIDE 20 MG TAB PO (06:00)
[2017-12-05] MEDS: PANTOPRAZOLE (EC) 40 MG TAB PO (07:01)
[2017-12-05] MEDS: INSULIN ASPART [NOVOLOG] 3 ML PEN SC ×7 (07:55→21:00)
[2017-12-05] MEDS: INSULIN GLARGINE [LANTus] (100 UNITS/ML) SYG SC (08:00)
[2017-12-05] MEDS: MISOPROSTOL 100 MCG TAB PO ×2 (08:21→18:22)
[2017-12-05] MEDS: ISOSORBIDE DINITRATE 10 MG TAB PO ×3 (08:21→21:39)
[2017-12-05] MEDS: MAGNESIUM OXIDE 400 MG TAB PO (08:21)
[2017-12-05] MEDS: LUBIPROSTONE 24 MCG CAP PO ×2 (08:22→21:39)
[2017-12-05] MEDS: ALLOPURINOL 100 MG TAB PO ×2 (08:22→21:39)
[2017-12-05] MEDS: ASPIRIN (EC) 81 MG TAB PO (08:22)
[2017-12-05] MEDS: METOPROLOL 50 MG TAB PO ×3 (08:22→22:50)
[2017-12-05] MEDS: DILTIAZEM 30 MG TAB PO ×3 (08:23→21:40)
[2017-12-05] MEDS: LINAGLIPTIN 5 MG TABLET PO (08:23)
[2017-12-05] MEDS: ALBUTEROL/IPRATROPIUM (NEB) 3 ML AMP HHN ×3 (08:52→23:03)
[2017-12-05 09:19] LABS: ADD MAN DIFF? NO
[2017-12-05 09:24] LABS: BASOPHILS % 0.7 % (0.0-2.0); EOSINOPHILS # 0.1 10^3/ul (0.0-0.5); EOSINOPHILS % 2.2 % (0.0-7.0); HEMOGLOBIN 9.1 g/dl (12.0-16.0); IMMATURE GRANS #M 0.04 10^3/ul; IMMATURE GRANS % (M) 0.7 %; LYMPHOCYTES # 1.1 10^3/ul (0.8-2.9); LYMPHOCYTES % 18.3 % (15.0-51.0); MEAN CORPUSCULAR HEMOGLOBIN 30.3 pg (29.0-33.0); MEAN CORPUSCULAR HGB CONC 31.4 g/dl (32.0-37.0); MEAN CORPUSCULAR VOLUME 96.7 fl (82.0-101.0); MEAN PLATELET VOLUME 10.4 fl (7.4-10.4); MONOCYTE # 0.7 10^3/ul (0.3-0.9); MONOCYTES % 11.3 % (0.0-11.0); NEUTROPHIL # 3.9 10^3/ul (1.6-7.5); NEUTROPHILS % 66.8 % (39.0-77.0); PLATELET COUNT 183 10^3/UL (140-415); RED CELL DISTRIBUTION WIDTH 14.2 % (11.5-14.5)
[2017-12-05 09:24] LABS: WHITE BLOOD COUNT 5.9 10^3/ul (4.8-10.8)
[2017-12-05 09:50] LABS: IRON 65 ug/dl (35-150)
[2017-12-05 09:56] LABS: ALANINE AMINOTRANSFERASE 17 IU/L (13-69); ALBUMIN/GLOBULIN RATIO 1.25; ALKALINE PHOSPHATASE 44 IU/L (42-121); ANION GAP 16 (8-16); ASPARTATE AMINO TRANSFERASE 12 IU/L (15-46); BILIRUBIN,INDIRECT 0.1 mg/dl (0-1.1); BILIRUBIN,TOTAL 0.1 mg/dl (0.2-1.3); BLOOD UREA NITROGEN 55 mg/dl (7-20); CALCIUM 8.4 mg/dl (8.4-10.2); CARBON DIOXIDE 28 mmol/L (21-31); CHLORIDE 95 mmol/L (97-110); CREATININE 2.31 mg/dl (0.44-1.00); GLUCOSE 128 mg/dl (70-220); POTASSIUM 4.6 mmol/L (3.5-5.1); SODIUM 134 mmol/L (135-144); TOTAL PROTEIN 5.4 g/dl (6.1-8.1)
[2017-12-05 10:00] LABS: % IRON SATURATION 25 % SAT (22-52); TOTAL IRON BINDING CAPACITY 258 ug/dl (241-421)
[2017-12-05 10:04] LABS: TROPONIN-I 0.011 ng/ml (0.000-0.120)
[2017-12-05] MEDS: LACTULOSE 30ML CUP PO (18:22)
[2017-12-05] MEDS: ATORVASTATIN 40 MG TAB PO (21:39)
[2017-12-05] MEDS: SENNA/DOCUSATE NA (8.6MG/50MG) TAB PO (21:40)
[2017-12-05] MEDS: ACETAMINOPHEN 325 MG TAB PO (22:49)
[2017-12-05] MEDS: DOXAZOSIN 2 MG TAB PO (22:50)
[2017-12-06] MEDS: ACCU-CHEK XX (01:36)
[2017-12-06] MEDS: PANTOPRAZOLE (EC) 40 MG TAB PO (06:56)
[2017-12-06] MEDS: FUROSEMIDE 20 MG INJ IV ×2 (06:57→18:09)
[2017-12-06] MEDS: LACTULOSE 30ML CUP PO (06:59)
[2017-12-06 07:34] LABS: ALANINE AMINOTRANSFERASE 20 IU/L (13-69); ALBUMIN 3.1 g/dl (3.3-4.9); ALBUMIN/GLOBULIN RATIO 1.34; ALKALINE PHOSPHATASE 43 IU/L (42-121); ANION GAP 12 (8-16); ASPARTATE AMINO TRANSFERASE 11 IU/L (15-46); BILIRUBIN,INDIRECT 0.2 mg/dl (0-1.1); BILIRUBIN,TOTAL 0.2 mg/dl (0.2-1.3); BLOOD UREA NITROGEN 54 mg/dl (7-20); CALCIUM 8.1 mg/dl (8.4-10.2); CARBON DIOXIDE 28 mmol/L (21-31); CHLORIDE 97 mmol/L (97-110); CREATININE 2.15 mg/dl (0.44-1.00); GLUCOSE 148 mg/dl (70-220); POTASSIUM 4.4 mmol/L (3.5-5.1); SODIUM 133 mmol/L (135-144); TOTAL PROTEIN 5.4 g/dl (6.1-8.1)
[2017-12-06] MEDS: INSULIN ASPART [NOVOLOG] 3 ML PEN SC ×7 (07:55→21:00)
[2017-12-06] MEDS: INSULIN GLARGINE [LANTus] (100 UNITS/ML) SYG SC (08:00)
[2017-12-06] MEDS: ALBUTEROL/IPRATROPIUM (NEB) 3 ML AMP HHN ×2 (08:41→15:50)
[2017-12-06] MEDS: LUBIPROSTONE 24 MCG CAP PO ×2 (09:07→21:35)
[2017-12-06] MEDS: MISOPROSTOL 100 MCG TAB PO ×2 (09:07→18:08)
[2017-12-06] MEDS: SODIUM CHLORIDE 1 GM TAB PO ×3 (09:07→21:36)
[2017-12-06] MEDS: ISOSORBIDE DINITRATE 10 MG TAB PO ×3 (09:07→21:36)
[2017-12-06] MEDS: ALLOPURINOL 100 MG TAB PO ×2 (09:08→21:36)
[2017-12-06] MEDS: MAGNESIUM OXIDE 400 MG TAB PO (09:08)
[2017-12-06] MEDS: ASPIRIN (EC) 81 MG TAB PO (09:08)
[2017-12-06] MEDS: LINAGLIPTIN 5 MG TABLET PO (09:08)
[2017-12-06] MEDS: METOPROLOL 50 MG TAB PO ×3 (09:08→21:37)
[2017-12-06] MEDS: DILTIAZEM 30 MG TAB PO ×3 (09:08→21:36)
[2017-12-06] MEDS: ENOXAPARIN 40 MG/0.4 ML SYG SC (09:17)
[2017-12-06] MEDS: ONDANSETRON 4 MG INJ IV (09:19)
[2017-12-06] MEDS: ACETAMINOPHEN 325 MG TAB PO (21:35)
[2017-12-06] MEDS: SENNA/DOCUSATE NA (8.6MG/50MG) TAB PO (21:36)
[2017-12-06] MEDS: DOXAZOSIN 2 MG TAB PO (21:36)
[2017-12-06] MEDS: ATORVASTATIN 40 MG TAB PO (21:36)
[2017-12-07] MEDS: ACCU-CHEK XX (01:54)
[2017-12-07] MEDS: PANTOPRAZOLE (EC) 40 MG TAB PO (05:20)
[2017-12-07] MEDS: FUROSEMIDE 20 MG INJ IV ×2 (05:20→17:44)
[2017-12-07] MEDS: ALBUTEROL/IPRATROPIUM (NEB) 3 ML AMP HHN ×3 (07:53→14:59)
[2017-12-07] MEDS: INSULIN ASPART [NOVOLOG] 3 ML PEN SC ×7 (07:55→20:59)
[2017-12-07] MEDS: INSULIN GLARGINE [LANTus] (100 UNITS/ML) SYG SC ×2 (08:00→20:30)
[2017-12-07] MEDS: DILTIAZEM 30 MG TAB PO ×3 (08:37→21:40)
[2017-12-07] MEDS: ASPIRIN (EC) 81 MG TAB PO (08:37)
[2017-12-07] MEDS: ALLOPURINOL 100 MG TAB PO ×2 (08:38→21:38)
[2017-12-07] MEDS: ISOSORBIDE DINITRATE 10 MG TAB PO ×3 (08:38→21:39)
[2017-12-07] MEDS: MISOPROSTOL 100 MCG TAB PO ×2 (08:38→17:42)
[2017-12-07] MEDS: METOPROLOL 50 MG TAB PO ×3 (08:38→21:38)
[2017-12-07] MEDS: SODIUM CHLORIDE 1 GM TAB PO ×3 (08:38→21:36)
[2017-12-07] MEDS: LUBIPROSTONE 24 MCG CAP PO ×2 (08:38→21:36)
[2017-12-07] MEDS: MAGNESIUM OXIDE 400 MG TAB PO (08:38)
[2017-12-07] MEDS: LINAGLIPTIN 5 MG TABLET PO (08:38)
[2017-12-07] MEDS: ENOXAPARIN 40 MG/0.4 ML SYG SC (08:55)
[2017-12-07] MEDS: ACETAMINOPHEN 325 MG TAB PO (09:04)
[2017-12-07] MEDS ORDERED: MAGNESIUM OXIDE 400 MG TAB PO (20:30)
[2017-12-07] MEDS ORDERED: traMADol 50 MG TAB PO (20:30)
[2017-12-07] MEDS ORDERED: LORAZEPAM 0.5 MG TAB PO ×2 (20:30→21:30)
[2017-12-07] MEDS ORDERED: ATORVASTATIN 40 MG TAB PO (21:00)
[2017-12-07] MEDS ORDERED: LUBIPROSTONE 24 MCG CAP PO (21:00)
[2017-12-07] MEDS ORDERED: METOPROLOL 50 MG TAB PO (21:00)
[2017-12-07] MEDS: ATORVASTATIN 40 MG TAB PO (21:36)
[2017-12-07] MEDS: SENNA TAB PO (21:37)
[2017-12-07] MEDS: DOXAZOSIN 2 MG TAB PO (21:39)
[2017-12-07] MEDS: APIXABAN 5 MG TABLET PO ×2 (21:41→21:44)
[2017-12-07] MEDS: HYDROCODONE/APAP (5/325) TAB PO (21:45)
[2017-12-08] MEDS: ALBUTEROL/IPRATROPIUM (NEB) 3 ML AMP HHN ×3 (00:15→16:00)
[2017-12-08] MEDS: ACCU-CHEK XX (02:00)
[2017-12-08] MEDS: PANTOPRAZOLE (EC) 40 MG TAB PO (06:55)
[2017-12-08] MEDS: INSULIN ASPART [NOVOLOG] 3 ML PEN SC ×6 (07:55→17:55)
[2017-12-08] MEDS: INSULIN GLARGINE [LANTus] (100 UNITS/ML) SYG SC (08:00)
[2017-12-08 08:03] LABS: ADD MAN DIFF? NO
[2017-12-08 08:06] LABS: BASOPHILS % 0.4 % (0.0-2.0); EOSINOPHILS # 0.2 10^3/ul (0.0-0.5); EOSINOPHILS % 2.3 % (0.0-7.0); HEMATOCRIT 27.7 % (37.0-47.0); HEMOGLOBIN 8.5 g/dl (12.0-16.0); IMMATURE GRANS #M 0.04 10^3/ul; IMMATURE GRANS % (M) 0.6 %; LYMPHOCYTES # 1.1 10^3/ul (0.8-2.9); LYMPHOCYTES % 15.2 % (15.0-51.0); MEAN CORPUSCULAR HEMOGLOBIN 30.4 pg (29.0-33.0); MEAN CORPUSCULAR HGB CONC 30.7 g/dl (32.0-37.0); MEAN CORPUSCULAR VOLUME 98.9 fl (82.0-101.0); MEAN PLATELET VOLUME 10.5 fl (7.4-10.4); MONOCYTE # 0.7 10^3/ul (0.3-0.9); MONOCYTES % 9.8 % (0.0-11.0); NEUTROPHIL # 5.1 10^3/ul (1.6-7.5); NEUTROPHILS % 71.7 % (39.0-77.0); PLATELET COUNT 151 10^3/UL (140-415); RED CELL DISTRIBUTION WIDTH 13.8 % (11.5-14.5)
[2017-12-08 08:06] LABS: WHITE BLOOD COUNT 7.1 10^3/ul (4.8-10.8)
[2017-12-08 08:22] LABS: MAGNESIUM 1.7 mg/dl (1.7-2.5)
[2017-12-08 08:22] LABS: PHOSPHORUS 3.6 mg/dl (2.5-4.9)
[2017-12-08 08:24] LABS: ALANINE AMINOTRANSFERASE 21 IU/L (13-69); ALBUMIN/GLOBULIN RATIO 1.07; ALKALINE PHOSPHATASE 46 IU/L (42-121); ANION GAP 11 (8-16); ASPARTATE AMINO TRANSFERASE 15 IU/L (15-46); BILIRUBIN,INDIRECT 0.1 mg/dl (0-1.1); BILIRUBIN,TOTAL 0.1 mg/dl (0.2-1.3); BLOOD UREA NITROGEN 52 mg/dl (7-20); CALCIUM 8.5 mg/dl (8.4-10.2); CARBON DIOXIDE 31 mmol/L (21-31); CHLORIDE 98 mmol/L (97-110); CREATININE 2.04 mg/dl (0.44-1.00); GLUCOSE 153 mg/dl (70-220); POTASSIUM 4.2 mmol/L (3.5-5.1); SODIUM 136 mmol/L (135-144); TOTAL PROTEIN 5.8 g/dl (6.1-8.1)
[2017-12-08 08:32] LABS: INR 1.04; PROTIME 13.7 Sec (11.9-14.9); PT RATIO 1.1
[2017-12-08 08:33] LABS: PARTIAL THROMBOPLASTIN TIME 29.7 Sec (25.0-35.0)
[2017-12-08] MEDS: DILTIAZEM 30 MG TAB PO ×2 (10:07→15:34)
[2017-12-08] MEDS: ALLOPURINOL 100 MG TAB PO (10:07)
[2017-12-08] MEDS: LUBIPROSTONE 24 MCG CAP PO (10:08)
[2017-12-08] MEDS: FUROSEMIDE 20 MG TAB PO (10:08)
[2017-12-08] MEDS: ASPIRIN (EC) 81 MG TAB PO (10:08)
[2017-12-08] MEDS: APIXABAN 5 MG TABLET PO (10:08)
[2017-12-08] MEDS: MISOPROSTOL 100 MCG TAB PO ×2 (10:09→19:03)
[2017-12-08] MEDS: ISOSORBIDE DINITRATE 10 MG TAB PO ×2 (10:10→15:33)
[2017-12-08] MEDS: METOPROLOL 50 MG TAB PO ×2 (10:10→15:33)
[2017-12-08] MEDS: LINAGLIPTIN 5 MG TABLET PO (10:10)
[2017-12-08] MEDS: MAGNESIUM OXIDE 400 MG TAB PO (10:24)
[2017-12-08] MEDS: ACETAMINOPHEN 325 MG TAB PO (15:32)
[2017-12-09] MEDS ORDERED: CLONIDINE 0.1 MG/24 HR PATCH TRANSDERM (23:30)
[2018-01-08] MEDS ORDERED: EPINEPHrine 0.1 MG/ML SYG
[2018-01-08] MEDS ORDERED: NA BICARBONATE 8.4% 50 ML SYG
== END 2017-12-08 20:00 | disposition home or self-care (01) | DRG 308 ==
LOC: TEL 19:54
PROVIDERS: Family Medicine
DX: I48.0 Paroxysmal atrial fibrillation (principal); I50.23 Acute on chronic systolic (congestive) heart failure; E87.1 Hypo-osmolality and hyponatremia; I13.0 Hypertensive heart and chronic kidney disease with heart failure and stage 1 through stage 4 chronic kidney disease, or unspecified chronic kidney disease; N17.9 Acute kidney failure, unspecified; I48.92 Unspecified atrial flutter; E87.5 Hyperkalemia; E11.22 Type 2 diabetes mellitus with diabetic chronic kidney disease; E11.21 Type 2 diabetes mellitus with diabetic nephropathy; E66.01 Morbid (severe) obesity due to excess calories; N18.3 Chronic kidney disease, stage 3 (moderate); D63.8 Anemia in other chronic diseases classified elsewhere; K59.00 Constipation, unspecified; R09.02 Hypoxemia; I25.10 Atherosclerotic heart disease of native coronary artery without angina pectoris; K21.9 Gastro-esophageal reflux disease without esophagitis; K58.9 Irritable bowel syndrome, unspecified; Z96.652 Presence of left artificial knee joint; F32.9 Major depressive disorder, single episode, unspecified; D50.9 Iron deficiency anemia, unspecified; R33.9 Retention of urine, unspecified; I25.2 Old myocardial infarction; Z68.39 Body mass index [BMI] 39.0-39.9, adult; Z79.4 Long term (current) use of insulin; Z79.02 Long term (current) use of antithrombotics/antiplatelets; Z79.82 Long term (current) use of aspirin; Z95.5 Presence of coronary angioplasty implant and graft
CPT/HCPCS: 80053; 82533; 82962; 83540; 83735; 84100; 84484; 85025; 85378; 85610; 85730; 93005; 93970; 94640; 94664; 97110; 97161

== ENCOUNTER 2018-01-03 18:05 | Inpatient (IN) | payer MEDICARE, OTHER ==
[2018-01-03] MEDS ORDERED: FUROSEMIDE 40 MG INJ IV (18:09)
[2018-01-03] MEDS ORDERED: ASPIRIN 81 MG TAB PO (18:09)
[2018-01-03] MEDS: DILTIAZEM 25 MG INJ IV ×2 (18:31→22:56)
[2018-01-03] MEDS: NITROGLYCERIN 2% 1 GM OINT PKT TD (18:32)
[2018-01-03 18:33] LABS: ADD MAN DIFF? NO
[2018-01-03] MEDS: MAGNESIUM SULFATE 2 GM/50 ML 50 ML IVPB ×2 (18:34→22:54)
[2018-01-03 18:40] LABS: Arterial Base Excess 0.5 mmol/L (-3.0-3); Arterial Blood Gas Oxygen Sat 96.5 mmHG (95.0-100.0); Arterial COHb 0.4 % (0.0-3.0); Arterial Fraction of Oxyhgb 96.1 % (93.0-99.0); Arterial HCO3 26.4 mmol/L (22.0-26.0); Arterial MetHb 0 % (0.0-1.5); Arterial Total Hemglobin 10.5 g/dl (12.0-18.0); Arterial pCO2 48.3 mmhg (35-45); Blood Gas IEPAP 15/5; Blood Gas PS 10; MODE MASK - BIPAP; Site Right Brachial
[2018-01-03 18:55] LABS: BASOPHILS % 0.3 % (0.0-2.0); EOSINOPHILS % 0.3 % (0.0-7.0); HEMATOCRIT 30.3 % (37.0-47.0); HEMOGLOBIN 9.5 g/dl (12.0-16.0); LYMPHOCYTES # 0.7 10^3/ul (0.8-2.9); LYMPHOCYTES % 7.6 % (15.0-51.0); MEAN CORPUSCULAR HEMOGLOBIN 30.9 pg (29.0-33.0); MEAN CORPUSCULAR HGB CONC 31.4 g/dl (32.0-37.0); MEAN CORPUSCULAR VOLUME 98.7 fl (82.0-101.0); MEAN PLATELET VOLUME 10.4 fl (7.4-10.4); MONOCYTE # 0.7 10^3/ul (0.3-0.9); MONOCYTES % 7.8 % (0.0-11.0); NEUTROPHIL # 7.6 10^3/ul (1.6-7.5); NEUTROPHILS % 83.2 % (39.0-77.0); PLATELET COUNT 221 10^3/UL (140-415); RED BLOOD COUNT 3.07 10^6/ul (4.20-5.40); RED CELL DISTRIBUTION WIDTH 14.6 % (11.5-14.5)
[2018-01-03 18:55] LABS: WHITE BLOOD COUNT 9.1 10^3/ul (4.8-10.8)
[2018-01-03 19:19] LABS: PARTIAL THROMBOPLASTIN TIME 26.4 Sec (25.0-35.0); PROTIME 14.4 Sec (11.9-14.9); PT RATIO 1.1
[2018-01-03 19:20] LABS: ANION GAP 16 (8-16); BLOOD UREA NITROGEN 57 mg/dl (7-20); CARBON DIOXIDE 29 mmol/L (21-31); CHLORIDE 93 mmol/L (97-110); CREATININE 2.22 mg/dl (0.44-1.00); GLUCOSE 271 mg/dl (70-220); MAGNESIUM 1.5 mg/dl (1.7-2.5); POTASSIUM 4.2 mmol/L (3.5-5.1); SODIUM 134 mmol/L (135-144)
[2018-01-03 19:32] LABS: B-TYPE NATRIURETIC PEPTIDE 22900 PG/ML (0-450); TROPONIN-I 0.043 ng/ml (0.000-0.120)
[2018-01-03] MEDS: NITROGLYCERIN 50 MG/D5W (PMX) 250 ML IV (19:47)
[2018-01-03] MEDS: FUROSEMIDE 40 MG INJ IV (19:59)
[2018-01-03] MEDS: ASPIRIN 81 MG TAB PO (19:59)
[2018-01-03 22:37] LABS: IRON 54 ug/dl (35-150)
[2018-01-03 22:40] LABS: HEMOGLOBIN A1C 8.3 % (0-5.9)
[2018-01-03 22:47] LABS: % IRON SATURATION 21 % SAT (22-52); TOTAL IRON BINDING CAPACITY 263 ug/dl (241-421)
[2018-01-03] MEDS: FUROSEMIDE 20 MG INJ IV (22:54)
[2018-01-03 22:57] LABS: DIGOXIN < 0.4 ng/ml (1.0-2.0)
[2018-01-03] MEDS ORDERED: GLUCAGON 1 MG INJ IM (23:00)
[2018-01-03] MEDS ORDERED: GLUCOSE GEL 15 GRAM TUBE PO ×2 (23:00)
[2018-01-03] MEDS ORDERED: GLUCOSE GEL 15 GRAM TUBE BUCCAL (23:00)
[2018-01-03] MEDS: ALBUTEROL/IPRATROPIUM (NEB) 3 ML AMP HHN (23:23)
[2018-01-03] MEDS: APIXABAN 5 MG TABLET PO (23:30)
[2018-01-03] MEDS: LUBIPROSTONE 24 MCG CAP PO (23:30)
[2018-01-03] MEDS: PANTOPRAZOLE (EC) 40 MG TAB PO (23:30)
[2018-01-04] MEDS: traMADol 50 MG TAB PO (00:42)
[2018-01-04 00:58] LABS: CREATINE KINASE 28 IU/L (23-200)
[2018-01-04 01:09] LABS: CK INDEX 2.6; CK-MB 0.72 ng/ml (0.0-2.4); TROPONIN-I 0.045 ng/ml (0.000-0.120)
[2018-01-04] MEDS: LORAZEPAM 0.5 MG TAB PO (01:36)
[2018-01-04] MEDS: FUROSEMIDE 20 MG INJ IV ×2 (05:39→17:43)
[2018-01-04 05:52] LABS: ADD MAN DIFF? NO
[2018-01-04 06:09] LABS: WHITE BLOOD COUNT 9.3 10^3/ul (4.8-10.8)
[2018-01-04 06:09] LABS: BASOPHILS % 0.3 % (0.0-2.0); EOSINOPHILS # 0.1 10^3/ul (0.0-0.5); HEMATOCRIT 27.6 % (37.0-47.0); HEMOGLOBIN 8.8 g/dl (12.0-16.0); LYMPHOCYTES % 10.7 % (15.0-51.0); MEAN CORPUSCULAR HEMOGLOBIN 30.8 pg (29.0-33.0); MEAN CORPUSCULAR HGB CONC 31.9 g/dl (32.0-37.0); MEAN CORPUSCULAR VOLUME 96.5 fl (82.0-101.0); MEAN PLATELET VOLUME 10.4 fl (7.4-10.4); MONOCYTES % 10.4 % (0.0-11.0); NEUTROPHIL # 7.1 10^3/ul (1.6-7.5); PLATELET COUNT 216 10^3/UL (140-415); RED BLOOD COUNT 2.86 10^6/ul (4.20-5.40); RED CELL DISTRIBUTION WIDTH 14.7 % (11.5-14.5)
[2018-01-04 06:18] LABS: CHOL/HDL RATIO 2.7 RATIO; HDL CHOLESTEROL 42 mg/dl (33-92); LDL CHOLESTEROL,CALCULATED 47 mg/dl; TRIGLYCERIDES 141 mg/dl (0-149)
[2018-01-04 06:18] LABS: CHOLESTEROL 117 mg/dl (100-200)
[2018-01-04 06:35] LABS: AMMONIA < 9 umol/l (9-30)
[2018-01-04 06:36] LABS: ALANINE AMINOTRANSFERASE 26 IU/L (13-69); ALBUMIN 2.9 g/dl (3.3-4.9); ALBUMIN/GLOBULIN RATIO 1.07; ALKALINE PHOSPHATASE 47 IU/L (42-121); ANION GAP 13 (8-16); ASPARTATE AMINO TRANSFERASE 17 IU/L (15-46); BILIRUBIN,INDIRECT 0.3 mg/dl (0-1.1); BILIRUBIN,TOTAL 0.3 mg/dl (0.2-1.3); BLOOD UREA NITROGEN 58 mg/dl (7-20); CALCIUM 8.9 mg/dl (8.4-10.2); CARBON DIOXIDE 31 mmol/L (21-31); CHLORIDE 94 mmol/L (97-110); CREATININE 1.93 mg/dl (0.44-1.00); GLUCOSE 206 mg/dl (70-220); POTASSIUM 3.9 mmol/L (3.5-5.1); SODIUM 134 mmol/L (135-144); TOTAL PROTEIN 5.6 g/dl (6.1-8.1)
[2018-01-04 07:23] LABS: CREATINE KINASE 26 IU/L (23-200)
[2018-01-04 07:26] LABS: CARCINOEMBRYONIC ANTIGEN 2.5 ng/ml (0.0-5.0)
[2018-01-04 07:36] LABS: CK INDEX 3.2; CK-MB 0.83 ng/ml (0.0-2.4)
[2018-01-04] MEDS: ALBUTEROL/IPRATROPIUM (NEB) 3 ML AMP HHN ×2 (08:26→16:50)
[2018-01-04 08:30] LABS: D-DIMER 3055.43 ng/ml (<460)
[2018-01-04] MEDS: ASPIRIN 81 MG TAB PO (08:38)
[2018-01-04] MEDS: LUBIPROSTONE 24 MCG CAP PO ×2 (08:51→22:10)
[2018-01-04] MEDS: APIXABAN 5 MG TABLET PO ×2 (08:51→22:10)
[2018-01-04] MEDS: POLYETHYLENE GLYCOL 17 GM PACKET PO ×3 (08:52→22:09)
[2018-01-04] MEDS: FUROSEMIDE 20 MG TAB PO (08:54)
[2018-01-04] MEDS: METOPROLOL 50 MG TAB PO ×3 (08:54→22:11)
[2018-01-04] MEDS: INSULIN GLARGINE [LANTus] (100 UNITS/ML) SYG SC ×2 (09:37→22:27)
[2018-01-04 10:05] LABS: AADO2 Arterial 31.3 mmHg (7.0-24.0); Arterial Base Excess 3.8 mmol/L (-3.0-3); Arterial Blood Gas Oxygen Sat 98.1 mmHG (95.0-100.0); Arterial COHb 0.3 % (0.0-3.0); Arterial Fraction of Oxyhgb 97.7 % (93.0-99.0); Arterial HCO3 29.4 mmol/L (22.0-26.0); Arterial MetHb 0.1 % (0.0-1.5); Arterial Total Hemglobin 9.4 g/dl (12.0-18.0); Arterial pCO2 49.4 mmhg (35-45); MODE NASAL CANNULA; Site Right Brachial
[2018-01-04] MEDS: ALBUMIN HUMAN 25% 100 ML IV (13:49)
[2018-01-04 15:02] LABS: PREALBUMIN 11.5 mg/dl (17.6-36.0)
[2018-01-04] MEDS: ACCU-CHEK XX ×2 (17:40→21:09)
[2018-01-04] MEDS: INSULIN ASPART [NOVOLOG] 3 ML PEN SC (17:45)
[2018-01-04 19:12] LABS: CREATINE KINASE 23 IU/L (23-200)
[2018-01-04 19:26] LABS: CK INDEX 4.5; CK-MB 1.04 ng/ml (0.0-2.4); TROPONIN-I 0.056 ng/ml (0.000-0.120)
[2018-01-04 20:01] LABS: SODIUM,URINE RANDOM 30 mmol/L (30-90)
[2018-01-04 20:07] LABS: CREATININE,URINE RANDOM 58.92 mg/dl (20-320); PROTEIN/CREAT RATIO 1.25 RATIO
[2018-01-04 20:24] LABS: AMPHETAMINE/METHAMPHETAMINE Negative (NEGATIVE); BARBITURATES Negative (NEGATIVE); BENZODIAZEPINES Negative (NEGATIVE); CANNABINOIDS Negative (NEGATIVE); COCAINE Negative (NEGATIVE); OPIATES Negative (NEGATIVE)
[2018-01-04] MEDS: ATORVASTATIN 40 MG TAB PO (22:10)
[2018-01-04] MEDS: SENNA TAB PO (22:10)
[2018-01-05] MEDS: ALBUTEROL/IPRATROPIUM (NEB) 3 ML AMP HHN ×3 (00:38→15:04)
[2018-01-05 01:19] LABS: CREATINE KINASE 20 IU/L (23-200)
[2018-01-05 01:30] LABS: CK INDEX 4.3; CK-MB 0.85 ng/ml (0.0-2.4); TROPONIN-I 0.084 ng/ml (0.000-0.120)
[2018-01-05] MEDS: traMADol 50 MG TAB PO ×2 (03:47→21:25)
[2018-01-05 06:17] LABS: URIC ACID 9.5 mg/dl (3.1-7.9)
[2018-01-05 06:17] LABS: CREATINE KINASE 20 IU/L (23-200)
[2018-01-05] MEDS: ACCU-CHEK XX ×4 (06:35→21:50)
[2018-01-05] MEDS: FUROSEMIDE 20 MG INJ IV ×2 (06:37→18:47)
[2018-01-05] MEDS: INSULIN ASPART [NOVOLOG] 3 ML PEN SC ×3 (07:44→17:22)
[2018-01-05] MEDS: LUBIPROSTONE 24 MCG CAP PO ×2 (08:29→21:24)
[2018-01-05] MEDS: METOPROLOL 50 MG TAB PO ×3 (08:29→21:26)
[2018-01-05] MEDS: POLYETHYLENE GLYCOL 17 GM PACKET PO ×3 (08:29→21:53)
[2018-01-05] MEDS: APIXABAN 5 MG TABLET PO ×2 (08:29→21:26)
[2018-01-05 14:01] LABS: ADD MAN DIFF? NO
[2018-01-05 14:02] LABS: WHITE BLOOD COUNT 6.8 10^3/ul (4.8-10.8)
[2018-01-05 14:02] LABS: BASOPHILS % 0.3 % (0.0-2.0); EOSINOPHILS # 0.2 10^3/ul (0.0-0.5); EOSINOPHILS % 2.2 % (0.0-7.0); HEMATOCRIT 26.8 % (37.0-47.0); HEMOGLOBIN 8.3 g/dl (12.0-16.0); LYMPHOCYTES # 0.9 10^3/ul (0.8-2.9); LYMPHOCYTES % 12.9 % (15.0-51.0); MEAN PLATELET VOLUME 9.7 fl (7.4-10.4); MONOCYTE # 0.7 10^3/ul (0.3-0.9); MONOCYTES % 10.5 % (0.0-11.0); NEUTROPHILS % 73.7 % (39.0-77.0); PLATELET COUNT 199 10^3/UL (140-415); RED BLOOD COUNT 2.68 10^6/ul (4.20-5.40)
[2018-01-05 14:28] LABS: ALANINE AMINOTRANSFERASE 15 IU/L (13-69); ALKALINE PHOSPHATASE 40 IU/L (42-121); ANION GAP 10 (8-16); ASPARTATE AMINO TRANSFERASE 14 IU/L (15-46); BILIRUBIN,INDIRECT 0.3 mg/dl (0-1.1); BILIRUBIN,TOTAL 0.3 mg/dl (0.2-1.3); BLOOD UREA NITROGEN 58 mg/dl (7-20); CALCIUM 8.3 mg/dl (8.4-10.2); CARBON DIOXIDE 35 mmol/L (21-31); CHLORIDE 95 mmol/L (97-110); CREATININE 2.56 mg/dl (0.44-1.00); GLUCOSE 65 mg/dl (70-220); SODIUM 136 mmol/L (135-144); TOTAL PROTEIN 5.3 g/dl (6.1-8.1)
[2018-01-05] MEDS: HYDROCODONE/APAP (5/325) TAB PO (14:51)
[2018-01-05] MEDS: MAGNESIUM SULFATE 2 GM/50 ML 50 ML IVPB (15:52)
[2018-01-05] MEDS: DIGOXIN 500 MCG INJ IV (16:00)
[2018-01-05] MEDS: ALBUMIN HUMAN 25% 100 ML IV (18:47)
[2018-01-05] MEDS: INSULIN GLARGINE [LANTus] (100 UNITS/ML) SYG SC (21:00)
[2018-01-05] MEDS: ATORVASTATIN 40 MG TAB PO (21:25)
[2018-01-05] MEDS: SENNA TAB PO (21:26)
[2018-01-06 05:54] LABS: ADD MAN DIFF? NO
[2018-01-06 06:02] LABS: BASOPHILS % 0.3 % (0.0-2.0); EOSINOPHILS # 0.2 10^3/ul (0.0-0.5); EOSINOPHILS % 2.4 % (0.0-7.0); HEMATOCRIT 27.6 % (37.0-47.0); HEMOGLOBIN 8.6 g/dl (12.0-16.0); LYMPHOCYTES # 1.2 10^3/ul (0.8-2.9); LYMPHOCYTES % 17.6 % (15.0-51.0); MEAN CORPUSCULAR HEMOGLOBIN 31.7 pg (29.0-33.0); MEAN CORPUSCULAR HGB CONC 31.2 g/dl (32.0-37.0); MEAN CORPUSCULAR VOLUME 101.8 fl (82.0-101.0); MEAN PLATELET VOLUME 10.1 fl (7.4-10.4); MONOCYTE # 0.8 10^3/ul (0.3-0.9); NEUTROPHIL # 4.7 10^3/ul (1.6-7.5); NEUTROPHILS % 67.3 % (39.0-77.0); PLATELET COUNT 211 10^3/UL (140-415); RED BLOOD COUNT 2.71 10^6/ul (4.20-5.40); RED CELL DISTRIBUTION WIDTH 14.9 % (11.5-14.5)
[2018-01-06] MEDS: ACCU-CHEK XX ×4 (06:10→20:54)
[2018-01-06 06:33] LABS: ALANINE AMINOTRANSFERASE 18 IU/L (13-69); ALBUMIN 3.2 g/dl (3.3-4.9); ALBUMIN/GLOBULIN RATIO 1.28; ALKALINE PHOSPHATASE 41 IU/L (42-121); ANION GAP 11 (8-16); ASPARTATE AMINO TRANSFERASE 15 IU/L (15-46); BILIRUBIN,INDIRECT 0.3 mg/dl (0-1.1); BILIRUBIN,TOTAL 0.3 mg/dl (0.2-1.3); BLOOD UREA NITROGEN 60 mg/dl (7-20); CALCIUM 8.4 mg/dl (8.4-10.2); CARBON DIOXIDE 34 mmol/L (21-31); CHLORIDE 95 mmol/L (97-110); CREATININE 2.52 mg/dl (0.44-1.00); GLUCOSE 87 mg/dl (70-220); POTASSIUM 3.9 mmol/L (3.5-5.1); SODIUM 136 mmol/L (135-144); TOTAL PROTEIN 5.7 g/dl (6.1-8.1)
[2018-01-06] MEDS: ALBUTEROL/IPRATROPIUM (NEB) 3 ML AMP HHN ×2 (08:00→16:00)
[2018-01-06] MEDS: INSULIN ASPART [NOVOLOG] 3 ML PEN SC ×3 (08:00→17:55)
[2018-01-06] MEDS: LUBIPROSTONE 24 MCG CAP PO ×2 (08:56→20:49)
[2018-01-06] MEDS: APIXABAN 5 MG TABLET PO ×2 (08:57→20:49)
[2018-01-06] MEDS: FUROSEMIDE 20 MG INJ IV (08:57)
[2018-01-06] MEDS: METOPROLOL 50 MG TAB PO (08:57)
[2018-01-06] MEDS: MAGNESIUM SULFATE 2 GM/50 ML 50 ML IVPB (08:57)
[2018-01-06] MEDS: METOPROLOL 25 MG TAB PO ×2 (17:00→22:24)
[2018-01-06] MEDS: SENNA TAB PO (20:49)
[2018-01-06] MEDS: ATORVASTATIN 40 MG TAB PO (20:49)
[2018-01-06] MEDS: traMADol 50 MG TAB PO (20:50)
[2018-01-06] MEDS: INSULIN GLARGINE [LANTus] (100 UNITS/ML) SYG SC (20:55)
[2018-01-07 05:40] LABS: ADD MAN DIFF? NO
[2018-01-07] MEDS: METOPROLOL 25 MG TAB PO ×3 (05:52→21:36)
[2018-01-07 06:01] LABS: WHITE BLOOD COUNT 6.8 10^3/ul (4.8-10.8)
[2018-01-07 06:01] LABS: BASOPHILS % 0.6 % (0.0-2.0); EOSINOPHILS # 0.2 10^3/ul (0.0-0.5); EOSINOPHILS % 2.2 % (0.0-7.0); HEMATOCRIT 28.6 % (37.0-47.0); HEMOGLOBIN 8.9 g/dl (12.0-16.0); LYMPHOCYTES # 1.2 10^3/ul (0.8-2.9); LYMPHOCYTES % 17.7 % (15.0-51.0); MEAN CORPUSCULAR HEMOGLOBIN 31.4 pg (29.0-33.0); MEAN CORPUSCULAR HGB CONC 31.1 g/dl (32.0-37.0); MEAN CORPUSCULAR VOLUME 101.1 fl (82.0-101.0); MEAN PLATELET VOLUME 10.5 fl (7.4-10.4); MONOCYTE # 0.8 10^3/ul (0.3-0.9); MONOCYTES % 11.8 % (0.0-11.0); NEUTROPHIL # 4.6 10^3/ul (1.6-7.5); NEUTROPHILS % 67.3 % (39.0-77.0); PLATELET COUNT 225 10^3/UL (140-415); RED BLOOD COUNT 2.83 10^6/ul (4.20-5.40); RED CELL DISTRIBUTION WIDTH 15.2 % (11.5-14.5)
[2018-01-07] MEDS: ACCU-CHEK XX ×4 (06:09→20:39)
[2018-01-07 07:04] LABS: ALANINE AMINOTRANSFERASE 27 IU/L (13-69); ALBUMIN 3.3 g/dl (3.3-4.9); ALBUMIN/GLOBULIN RATIO 1.17; ALKALINE PHOSPHATASE 47 IU/L (42-121); ANION GAP 14 (8-16); ASPARTATE AMINO TRANSFERASE 19 IU/L (15-46); BILIRUBIN,INDIRECT 0.4 mg/dl (0-1.1); BILIRUBIN,TOTAL 0.4 mg/dl (0.2-1.3); BLOOD UREA NITROGEN 56 mg/dl (7-20); CALCIUM 8.6 mg/dl (8.4-10.2); CARBON DIOXIDE 33 mmol/L (21-31); CHLORIDE 95 mmol/L (97-110); CREATININE 2.28 mg/dl (0.44-1.00); GLUCOSE 78 mg/dl (70-220); POTASSIUM 3.8 mmol/L (3.5-5.1); SODIUM 138 mmol/L (135-144); TOTAL PROTEIN 6.1 g/dl (6.1-8.1)
[2018-01-07] MEDS: INSULIN ASPART [NOVOLOG] 3 ML PEN SC ×3 (07:53→16:41)
[2018-01-07] MEDS: LUBIPROSTONE 24 MCG CAP PO ×2 (08:46→20:38)
[2018-01-07] MEDS: APIXABAN 5 MG TABLET PO ×2 (08:46→20:37)
[2018-01-07] MEDS: FUROSEMIDE 20 MG INJ IV (08:49)
[2018-01-07] MEDS: traMADol 50 MG TAB PO ×2 (08:59→21:36)
[2018-01-07] MEDS: MAGNESIUM SULFATE 2 GM/50 ML 50 ML IVPB (08:59)
[2018-01-07] MEDS: ALBUTEROL/IPRATROPIUM (NEB) 3 ML AMP HHN ×2 (09:06→16:37)
[2018-01-07] MEDS ORDERED: PENDING SANTYL ORDER FOR WOUND CARE XX (15:00)
[2018-01-07] MEDS: FUROSEMIDE 20 MG TAB PO ×2 (17:16→17:19)
[2018-01-07] MEDS: LORAZEPAM 0.5 MG TAB PO (20:37)
[2018-01-07] MEDS: ATORVASTATIN 40 MG TAB PO (20:38)
[2018-01-07] MEDS: SENNA TAB PO (20:38)
[2018-01-07] MEDS: INSULIN GLARGINE [LANTus] (100 UNITS/ML) SYG SC (20:57)
[2018-01-08] MEDS: FUROSEMIDE 20 MG TAB PO ×2 (06:00→11:36)
[2018-01-08 06:05] LABS: ADD MAN DIFF? NO
[2018-01-08 06:07] LABS: BASOPHILS % 0.2 % (0.0-2.0); EOSINOPHILS % 0.2 % (0.0-7.0); HEMATOCRIT 25.1 % (37.0-47.0); HEMOGLOBIN 7.9 g/dl (12.0-16.0); LYMPHOCYTES # 0.7 10^3/ul (0.8-2.9); LYMPHOCYTES % 7.3 % (15.0-51.0); MEAN CORPUSCULAR HEMOGLOBIN 31.5 pg (29.0-33.0); MEAN CORPUSCULAR HGB CONC 31.5 g/dl (32.0-37.0); MEAN PLATELET VOLUME 10.4 fl (7.4-10.4); MONOCYTE # 0.9 10^3/ul (0.3-0.9); MONOCYTES % 9.7 % (0.0-11.0); NEUTROPHIL # 7.5 10^3/ul (1.6-7.5); NEUTROPHILS % 82.2 % (39.0-77.0); PLATELET COUNT 202 10^3/UL (140-415); RED BLOOD COUNT 2.51 10^6/ul (4.20-5.40); RED CELL DISTRIBUTION WIDTH 15.2 % (11.5-14.5)
[2018-01-08 06:07] LABS: WHITE BLOOD COUNT 9.2 10^3/ul (4.8-10.8)
[2018-01-08] MEDS: ACCU-CHEK XX ×4 (06:08→20:16)
[2018-01-08 06:36] LABS: IRON 28 ug/dl (35-150)
[2018-01-08 06:38] LABS: ALANINE AMINOTRANSFERASE 23 IU/L (13-69); ALBUMIN 2.9 g/dl (3.3-4.9); ALBUMIN/GLOBULIN RATIO 1.11; ALKALINE PHOSPHATASE 37 IU/L (42-121); ANION GAP 13 (8-16); ASPARTATE AMINO TRANSFERASE 16 IU/L (15-46); BILIRUBIN,INDIRECT 0.3 mg/dl (0-1.1); BILIRUBIN,TOTAL 0.3 mg/dl (0.2-1.3); BLOOD UREA NITROGEN 57 mg/dl (7-20); CALCIUM 8.3 mg/dl (8.4-10.2); CARBON DIOXIDE 32 mmol/L (21-31); CHLORIDE 95 mmol/L (97-110); CREATININE 1.91 mg/dl (0.44-1.00); GLUCOSE 141 mg/dl (70-220); POTASSIUM 3.9 mmol/L (3.5-5.1); SODIUM 136 mmol/L (135-144); TOTAL PROTEIN 5.5 g/dl (6.1-8.1)
[2018-01-08] MEDS: METOPROLOL 25 MG TAB PO ×3 (06:43→21:47)
[2018-01-08 06:44] LABS: B-TYPE NATRIURETIC PEPTIDE 33400 PG/ML (0-450)
[2018-01-08 06:45] LABS: % IRON SATURATION 13 % SAT (22-52); TOTAL IRON BINDING CAPACITY 222 ug/dl (241-421)
[2018-01-08 06:52] LABS: MAGNESIUM 2.7 mg/dl (1.7-2.5)
[2018-01-08] MEDS: ALBUTEROL/IPRATROPIUM (NEB) 3 ML AMP HHN ×2 (07:45→15:37)
[2018-01-08] MEDS: INSULIN ASPART [NOVOLOG] 3 ML PEN SC ×3 (08:00→16:35)
[2018-01-08] MEDS: APIXABAN 5 MG TABLET PO ×2 (08:02→20:05)
[2018-01-08] MEDS: LUBIPROSTONE 24 MCG CAP PO ×2 (08:02→20:05)
[2018-01-08] MEDS: CLONIDINE 0.2 MG/24 HR PATCH TRANSDERM (13:44)
[2018-01-08] MEDS: SOD FERRIC GLUC COMPLX 125 MG in SOD CHLORIDE 0.9% 100 ML IVPB (16:28)
[2018-01-08] MEDS: traMADol 50 MG TAB PO (16:28)
[2018-01-08] MEDS: SENNA TAB PO (20:05)
[2018-01-08] MEDS: ATORVASTATIN 40 MG TAB PO (20:05)
[2018-01-08] MEDS: INSULIN GLARGINE [LANTus] (100 UNITS/ML) SYG SC (20:15)
[2018-01-08] MEDS: LORAZEPAM 0.5 MG TAB PO (21:46)
[2018-01-08] MEDS: COLLAGENASE 5 GM (UD JAR) TOP (22:00)
[2018-01-09] MEDS: METOPROLOL 25 MG TAB PO ×3 (05:57→21:10)
[2018-01-09] MEDS: FUROSEMIDE 20 MG TAB PO ×2 (05:57→17:07)
[2018-01-09 06:11] LABS: ADD MAN DIFF? NO
[2018-01-09 06:18] LABS: BASOPHILS % 0.5 % (0.0-2.0); EOSINOPHILS # 0.1 10^3/ul (0.0-0.5); EOSINOPHILS % 1.5 % (0.0-7.0); HEMATOCRIT 28.8 % (37.0-47.0); LYMPHOCYTES # 0.9 10^3/ul (0.8-2.9); LYMPHOCYTES % 10.6 % (15.0-51.0); MEAN CORPUSCULAR HEMOGLOBIN 31.4 pg (29.0-33.0); MEAN CORPUSCULAR HGB CONC 31.3 g/dl (32.0-37.0); MEAN CORPUSCULAR VOLUME 100.3 fl (82.0-101.0); MEAN PLATELET VOLUME 10.5 fl (7.4-10.4); MONOCYTES % 11.4 % (0.0-11.0); NEUTROPHIL # 6.3 10^3/ul (1.6-7.5); NEUTROPHILS % 75.5 % (39.0-77.0); PLATELET COUNT 237 10^3/UL (140-415); RED BLOOD COUNT 2.87 10^6/ul (4.20-5.40); RED CELL DISTRIBUTION WIDTH 15.4 % (11.5-14.5)
[2018-01-09 06:18] LABS: WHITE BLOOD COUNT 8.4 10^3/ul (4.8-10.8)
[2018-01-09 06:38] LABS: ALANINE AMINOTRANSFERASE 25 IU/L (13-69); ALBUMIN 3.3 g/dl (3.3-4.9); ALKALINE PHOSPHATASE 49 IU/L (42-121); ANION GAP 13 (8-16); ASPARTATE AMINO TRANSFERASE 19 IU/L (15-46); BILIRUBIN,INDIRECT 0.5 mg/dl (0-1.1); BILIRUBIN,TOTAL 0.5 mg/dl (0.2-1.3); BLOOD UREA NITROGEN 56 mg/dl (7-20); CALCIUM 8.4 mg/dl (8.4-10.2); CARBON DIOXIDE 32 mmol/L (21-31); CHLORIDE 95 mmol/L (97-110); CREATININE 2.04 mg/dl (0.44-1.00); GLUCOSE 135 mg/dl (70-220); POTASSIUM 3.9 mmol/L (3.5-5.1); SODIUM 136 mmol/L (135-144); TOTAL PROTEIN 6.3 g/dl (6.1-8.1)
[2018-01-09] MEDS: ACCU-CHEK XX ×4 (07:00→21:00)
[2018-01-09] MEDS: ALBUTEROL/IPRATROPIUM (NEB) 3 ML AMP HHN ×2 (07:45→16:52)
[2018-01-09] MEDS: INSULIN ASPART [NOVOLOG] 3 ML PEN SC ×3 (08:00→17:13)
[2018-01-09] MEDS: LUBIPROSTONE 24 MCG CAP PO ×2 (08:52→21:08)
[2018-01-09] MEDS: APIXABAN 5 MG TABLET PO ×2 (08:53→21:09)
[2018-01-09] MEDS: COLLAGENASE 5 GM (UD JAR) TOP (08:53)
[2018-01-09] MEDS: FUROSEMIDE 40 MG INJ IV ×2 (11:02→18:19)
[2018-01-09] MEDS: traMADol 50 MG TAB PO (15:05)
[2018-01-09] MEDS: SOD FERRIC GLUC COMPLX 125 MG in SOD CHLORIDE 0.9% 100 ML IVPB (17:06)
[2018-01-09] MEDS: LORAZEPAM 0.5 MG TAB PO (19:54)
[2018-01-09] MEDS: SENNA TAB PO (21:08)
[2018-01-09] MEDS: ATORVASTATIN 40 MG TAB PO (21:09)
[2018-01-09] MEDS: INSULIN GLARGINE [LANTus] (100 UNITS/ML) SYG SC (21:35)
[2018-01-10] MEDS: traMADol 50 MG TAB PO ×2 (00:53→20:47)
[2018-01-10] MEDS: ONDANSETRON 4 MG INJ IV (00:54)
[2018-01-10] MEDS: FUROSEMIDE 40 MG INJ IV (06:03)
[2018-01-10] MEDS: METOPROLOL 25 MG TAB PO ×3 (06:04→20:48)
[2018-01-10] MEDS: FUROSEMIDE 20 MG TAB PO (06:05)
[2018-01-10] MEDS: ACCU-CHEK XX ×4 (07:00→21:14)
[2018-01-10] MEDS: INSULIN ASPART [NOVOLOG] 3 ML PEN SC ×3 (08:00→17:01)
[2018-01-10] MEDS: ALBUTEROL/IPRATROPIUM (NEB) 3 ML AMP HHN ×2 (08:18→15:04)
[2018-01-10] MEDS: APIXABAN 5 MG TABLET PO ×2 (08:33→20:47)
[2018-01-10] MEDS: LUBIPROSTONE 24 MCG CAP PO ×2 (08:33→20:46)
[2018-01-10] MEDS: COLLAGENASE 5 GM (UD JAR) TOP (08:34)
[2018-01-10] MEDS: FUROSEMIDE 20 MG INJ IV ×2 (13:20→17:05)
[2018-01-10] MEDS: SOD FERRIC GLUC COMPLX 125 MG in SOD CHLORIDE 0.9% 100 ML IVPB (17:05)
[2018-01-10] MEDS: ATORVASTATIN 40 MG TAB PO (20:47)
[2018-01-10] MEDS: SENNA TAB PO (20:47)
[2018-01-10] MEDS: LORAZEPAM 0.5 MG TAB PO (20:47)
[2018-01-10] MEDS: INSULIN GLARGINE [LANTus] (100 UNITS/ML) SYG SC (21:00)
[2018-01-11 06:19] LABS: ADD MAN DIFF? NO
[2018-01-11] MEDS: FUROSEMIDE 20 MG INJ IV ×2 (06:19→18:37)
[2018-01-11] MEDS: METOPROLOL 25 MG TAB PO ×2 (06:20→14:00)
[2018-01-11 06:26] LABS: WHITE BLOOD COUNT 9.5 10^3/ul (4.8-10.8)
[2018-01-11 06:26] LABS: BASOPHILS % 0.3 % (0.0-2.0); EOSINOPHILS % 0.1 % (0.0-7.0); HEMATOCRIT 28.4 % (37.0-47.0); LYMPHOCYTES # 0.7 10^3/ul (0.8-2.9); LYMPHOCYTES % 7.6 % (15.0-51.0); MEAN CORPUSCULAR HEMOGLOBIN 31.5 pg (29.0-33.0); MEAN CORPUSCULAR HGB CONC 31.7 g/dl (32.0-37.0); MEAN CORPUSCULAR VOLUME 99.3 fl (82.0-101.0); MEAN PLATELET VOLUME 10.6 fl (7.4-10.4); NEUTROPHIL # 7.6 10^3/ul (1.6-7.5); NEUTROPHILS % 80.5 % (39.0-77.0); PLATELET COUNT 262 10^3/UL (140-415); RED BLOOD COUNT 2.86 10^6/ul (4.20-5.40); RED CELL DISTRIBUTION WIDTH 15.7 % (11.5-14.5)
[2018-01-11] MEDS: ACCU-CHEK XX ×4 (06:30→21:15)
[2018-01-11 07:12] LABS: PHOSPHORUS 4.7 mg/dl (2.5-4.9)
[2018-01-11 07:12] LABS: MAGNESIUM 2.3 mg/dl (1.7-2.5)
[2018-01-11 07:18] LABS: ALANINE AMINOTRANSFERASE 30 IU/L (13-69); ALBUMIN 3.4 g/dl (3.3-4.9); ALBUMIN/GLOBULIN RATIO 1.41; ALKALINE PHOSPHATASE 50 IU/L (42-121); ANION GAP 23 (8-16); ASPARTATE AMINO TRANSFERASE 30 IU/L (15-46); BILIRUBIN,INDIRECT 0.5 mg/dl (0-1.1); BILIRUBIN,TOTAL 0.5 mg/dl (0.2-1.3); BLOOD UREA NITROGEN 58 mg/dl (7-20); CALCIUM 8.2 mg/dl (8.4-10.2); CARBON DIOXIDE 23 mmol/L (21-31); CHLORIDE 92 mmol/L (97-110); GLUCOSE 111 mg/dl (70-220); POTASSIUM 4.8 mmol/L (3.5-5.1); SODIUM 133 mmol/L (135-144); TOTAL PROTEIN 5.8 g/dl (6.1-8.1)
[2018-01-11] MEDS: ALBUTEROL/IPRATROPIUM (NEB) 3 ML AMP HHN ×2 (07:40→16:00)
[2018-01-11] MEDS: INSULIN ASPART [NOVOLOG] 3 ML PEN SC ×3 (08:16→16:57)
[2018-01-11] MEDS: LUBIPROSTONE 24 MCG CAP PO ×2 (08:50→21:00)
[2018-01-11] MEDS: APIXABAN 5 MG TABLET PO ×3 (08:50→19:31)
[2018-01-11] MEDS: COLLAGENASE 5 GM (UD JAR) TOP (08:51)
[2018-01-11] MEDS: traMADol 50 MG TAB PO (11:57)
[2018-01-11] MEDS: MIDAZOLAM (DRIP) 50 mg/50 mL 50 ML IV ×2 (14:20→21:03)
[2018-01-11] MEDS ORDERED: DOPamine-D5W 1.6 MG/ML 250 ML (14:23)
[2018-01-11 14:30] LABS: ADD MAN DIFF? NO
[2018-01-11 14:37] LABS: BASOPHILS % 0.1 % (0.0-2.0); HEMATOCRIT 31.6 % (37.0-47.0); HEMOGLOBIN 9.7 g/dl (12.0-16.0); LYMPHOCYTES # 1.4 10^3/ul (0.8-2.9); LYMPHOCYTES % 8.1 % (15.0-51.0); MEAN CORPUSCULAR HEMOGLOBIN 31.4 pg (29.0-33.0); MEAN CORPUSCULAR HGB CONC 30.7 g/dl (32.0-37.0); MEAN CORPUSCULAR VOLUME 102.3 fl (82.0-101.0); MEAN PLATELET VOLUME 10.7 fl (7.4-10.4); MONOCYTE # 1.1 10^3/ul (0.3-0.9); MONOCYTES % 6.5 % (0.0-11.0); NEUTROPHIL # 14.1 10^3/ul (1.6-7.5); NEUTROPHILS % 83.5 % (39.0-77.0); NUCLEATED RED BLOOD CELLS # 0.1 10^3/ul (0.0-0.0); NUCLEATED RED BLOOD CELLS% 0.3 /100WBC (0.0-0.0); PLATELET COUNT 193 10^3/UL (140-415); RED BLOOD COUNT 3.09 10^6/ul (4.20-5.40); RED CELL DISTRIBUTION WIDTH 15.9 % (11.5-14.5)
[2018-01-11 14:37] LABS: WHITE BLOOD COUNT 16.9 10^3/ul (4.8-10.8)
[2018-01-11 14:54] LABS: ANION GAP 18 (8-16); BLOOD UREA NITROGEN 62 mg/dl (7-20); CALCIUM 8.5 mg/dl (8.4-10.2); CARBON DIOXIDE 27 mmol/L (21-31); CHLORIDE 95 mmol/L (97-110); CREATINE KINASE 75 IU/L (23-200); CREATININE 2.19 mg/dl (0.44-1.00); GLUCOSE 91 mg/dl (70-220); MAGNESIUM 2.4 mg/dl (1.7-2.5); SODIUM 135 mmol/L (135-144)
[2018-01-11] MEDS ORDERED: NORepinephrine 8MG/250 ML (PMX 250 ML IV (15:00)
[2018-01-11 15:01] LABS: LACTIC ACID 9.2 mmol/L (0.5-2.0)
[2018-01-11 15:02] LABS: POTASSIUM 5.4 mmol/L (3.5-5.1)
[2018-01-11 15:05] LABS: CK INDEX 3.4; CK-MB 2.54 ng/ml (0.0-2.4); TROPONIN-I 0.027 ng/ml (0.000-0.120)
[2018-01-11 15:17] LABS: Arterial Base Excess -0.8 mmol/L (-3.0-3); Arterial Blood Gas Oxygen Sat 86.4 mmHG (95.0-100.0); Arterial COHb 0 % (0.0-3.0); Arterial Fraction of Oxyhgb 86.1 % (93.0-99.0); Arterial HCO3 25.1 mmol/L (22.0-26.0); Arterial MetHb 0.3 % (0.0-1.5); Arterial Total Hemglobin 9.9 g/dl (12.0-18.0); MODE AMBU BAG; Site Femoral
[2018-01-11] MEDS: SOD CHLORIDE 0.9% 1,000 ML IV (15:30)
[2018-01-11] MEDS ORDERED: PIPER-TAZO 3.375 GM IV (PMX) 100 ML IVPB (16:30)
[2018-01-11 18:57] LABS: CREATINE KINASE 99 IU/L (23-200)
[2018-01-11 19:10] LABS: CK INDEX 5.2; TROPONIN-I 0.108 ng/ml (0.000-0.120)
[2018-01-11 19:59] LABS: IRON 201 ug/dl (35-150)
[2018-01-11 20:08] LABS: % IRON SATURATION 103 % SAT (22-52); TOTAL IRON BINDING CAPACITY 195 ug/dl (241-421)
[2018-01-11] MEDS: ATORVASTATIN 40 MG TAB PO (21:00)
[2018-01-11] MEDS: SENNA TAB PO (21:00)
[2018-01-11] MEDS: PIPER-TAZO 2.25 GM (PMX) 50 ML IVPB (21:04)
[2018-01-11] MEDS: DEXTROSE 50% 50 ML SYRINGE IV (21:09)
[2018-01-11] MEDS: INSULIN GLARGINE [LANTus] (100 UNITS/ML) SYG SC (21:56)
[2018-01-11] MEDS: SOD CHLORIDE 0.9% 250 ML IV (22:06)
[2018-01-11 22:09] LABS: Allen Test ACCEPTAB; Arterial Base Excess -5.8 mmol/L (-3.0-3); Arterial Blood Gas Oxygen Sat 94.3 mmHG (95.0-100.0); Arterial COHb 0.3 % (0.0-3.0); Arterial Fraction of Oxyhgb 93.7 % (93.0-99.0); Arterial MetHb 0.3 % (0.0-1.5); Arterial Total Hemglobin 10.6 g/dl (12.0-18.0); Arterial pCO2 25.3 mmhg (35-45); MODE VENT - AC; Site Right Radial
[2018-01-11] MEDS: ALBUMIN HUMAN 25% 100 ML IV (22:58)
[2018-01-12] MEDS ORDERED: PIPER-TAZO 2.25 GM (PMX) 50 ML IVPB
[2018-01-12] MEDS: PIPER-TAZO 2.25 GM (PMX) 50 ML IVPB ×4 (00:08→21:10)
[2018-01-12] MEDS: FUROSEMIDE 40 MG INJ IV ×4 (00:08→18:29)
[2018-01-12] MEDS: MIDAZOLAM (DRIP) 50 mg/50 mL 50 ML IV ×2 (00:13→15:52)
[2018-01-12 01:10] LABS: CREATINE KINASE 138 IU/L (23-200)
[2018-01-12 01:23] LABS: CK INDEX 6.1; CK-MB 8.48 ng/ml (0.0-2.4)
[2018-01-12 01:25] LABS: TROPONIN-I 0.672 ng/ml (0.000-0.120)
[2018-01-12 05:25] LABS: ADD MAN DIFF? NO
[2018-01-12 05:37] LABS: BASOPHILS % 0.1 % (0.0-2.0); HEMATOCRIT 27.3 % (37.0-47.0); HEMOGLOBIN 8.8 g/dl (12.0-16.0); LYMPHOCYTES % 6.6 % (15.0-51.0); MEAN CORPUSCULAR HEMOGLOBIN 31.7 pg (29.0-33.0); MEAN CORPUSCULAR HGB CONC 32.2 g/dl (32.0-37.0); MEAN CORPUSCULAR VOLUME 98.2 fl (82.0-101.0); MEAN PLATELET VOLUME 10.8 fl (7.4-10.4); MONOCYTE # 1.1 10^3/ul (0.3-0.9); MONOCYTES % 7.4 % (0.0-11.0); NEUTROPHIL # 12.6 10^3/ul (1.6-7.5); NEUTROPHILS % 85.3 % (39.0-77.0); NUCLEATED RED BLOOD CELLS # 0.1 10^3/ul (0.0-0.0); NUCLEATED RED BLOOD CELLS% 0.3 /100WBC (0.0-0.0); PLATELET COUNT 212 10^3/UL (140-415); RED BLOOD COUNT 2.78 10^6/ul (4.20-5.40); RED CELL DISTRIBUTION WIDTH 15.9 % (11.5-14.5)
[2018-01-12 05:37] LABS: WHITE BLOOD COUNT 14.8 10^3/ul (4.8-10.8)
[2018-01-12 05:52] LABS: CREATINE KINASE 145 IU/L (23-200)
[2018-01-12 05:53] LABS: MAGNESIUM 2.1 mg/dl (1.7-2.5)
[2018-01-12 05:53] LABS: PHOSPHORUS 4.5 mg/dl (2.5-4.9)
[2018-01-12] MEDS: ACCU-CHEK XX ×4 (06:03→21:11)
[2018-01-12] MEDS: INSULIN ASPART [NOVOLOG] 3 ML PEN SC ×6 (06:03→21:14)
[2018-01-12 06:05] LABS: CK-MB 8.68 ng/ml (0.0-2.4)
[2018-01-12 06:08] LABS: LACTIC ACID 9.5 mmol/L (0.5-2.0)
[2018-01-12 07:01] LABS: ALANINE AMINOTRANSFERASE 834 IU/L (13-69); ALBUMIN 3.3 g/dl (3.3-4.9); ALBUMIN/GLOBULIN RATIO 1.57; ALKALINE PHOSPHATASE 78 IU/L (42-121); ANION GAP 28 (8-16); BILIRUBIN,INDIRECT 1.1 mg/dl (0-1.1); BILIRUBIN,TOTAL 2.1 mg/dl (0.2-1.3); BLOOD UREA NITROGEN 64 mg/dl (7-20); CALCIUM 8.3 mg/dl (8.4-10.2); CARBON DIOXIDE 19 mmol/L (21-31); CHLORIDE 94 mmol/L (97-110); GLUCOSE 135 mg/dl (70-220); POTASSIUM 4.9 mmol/L (3.5-5.1); SODIUM 136 mmol/L (135-144); TOTAL PROTEIN 5.4 g/dl (6.1-8.1)
[2018-01-12] MEDS: ALBUTEROL/IPRATROPIUM (NEB) 3 ML AMP HHN ×2 (07:53→16:00)
[2018-01-12] MEDS: LUBIPROSTONE 24 MCG CAP PO ×3 (08:25→21:08)
[2018-01-12] MEDS: COLLAGENASE 5 GM (UD JAR) TOP (08:26)
[2018-01-12] MEDS: ALBUMIN HUMAN 25% 100 ML IV (13:31)
[2018-01-12 15:05] LABS: AADO2 Arterial 384.8 mmHg (7.0-24.0); Allen Test ACCEPTAB; Arterial Base Excess -0.3 mmol/L (-3.0-3); Arterial Blood Gas Oxygen Sat 99.1 mmHG (95.0-100.0); Arterial COHb 0.3 % (0.0-3.0); Arterial Fraction of Oxyhgb 98.8 % (93.0-99.0); Arterial HCO3 20.1 mmol/L (22.0-26.0); Arterial MetHb 0 % (0.0-1.5); MODE VENT - AC; Site Right Radial
[2018-01-12] MEDS: ATORVASTATIN 40 MG TAB PO (21:08)
[2018-01-12] MEDS: APIXABAN 5 MG TABLET PO (21:09)
[2018-01-12] MEDS: SENNA TAB PO (21:09)
[2018-01-12] MEDS: INSULIN GLARGINE [LANTus] (100 UNITS/ML) SYG SC (21:14)
[2018-01-13] MEDS: INSULIN ASPART [NOVOLOG] 3 ML PEN SC ×9 (01:27→21:18)
[2018-01-13] MEDS ORDERED: ACCU-CHEK XX (02:00)
[2018-01-13] MEDS: PIPER-TAZO 2.25 GM (PMX) 50 ML IVPB ×3 (05:31→21:37)
[2018-01-13] MEDS: FUROSEMIDE 40 MG INJ IV (05:32)
[2018-01-13] MEDS: ACCU-CHEK XX ×4 (05:42→21:18)
[2018-01-13 06:02] LABS: ADD MAN DIFF? NO
[2018-01-13 06:10] LABS: WHITE BLOOD COUNT 10.8 10^3/ul (4.8-10.8)
[2018-01-13 06:10] LABS: BASOPHILS % 0.1 % (0.0-2.0); EOSINOPHILS % 0.3 % (0.0-7.0); HEMATOCRIT 23.5 % (37.0-47.0); HEMOGLOBIN 7.8 g/dl (12.0-16.0); LYMPHOCYTES % 9.5 % (15.0-51.0); MEAN CORPUSCULAR HEMOGLOBIN 31.6 pg (29.0-33.0); MEAN CORPUSCULAR HGB CONC 33.2 g/dl (32.0-37.0); MEAN CORPUSCULAR VOLUME 95.1 fl (82.0-101.0); MEAN PLATELET VOLUME 10.8 fl (7.4-10.4); MONOCYTE # 0.7 10^3/ul (0.3-0.9); MONOCYTES % 6.3 % (0.0-11.0); NEUTROPHILS % 83.2 % (39.0-77.0); NUCLEATED RED BLOOD CELLS # 0.1 10^3/ul (0.0-0.0); NUCLEATED RED BLOOD CELLS% 0.6 /100WBC (0.0-0.0); PLATELET COUNT 156 10^3/UL (140-415); RED BLOOD COUNT 2.47 10^6/ul (4.20-5.40); RED CELL DISTRIBUTION WIDTH 16.6 % (11.5-14.5)
[2018-01-13 06:38] LABS: ALBUMIN 2.7 g/dl (3.3-4.9); ALBUMIN/GLOBULIN RATIO 1.35; ALKALINE PHOSPHATASE 65 IU/L (42-121); ANION GAP 15 (8-16); BILIRUBIN,INDIRECT 0.9 mg/dl (0-1.1); BILIRUBIN,TOTAL 0.9 mg/dl (0.2-1.3); BLOOD UREA NITROGEN 79 mg/dl (7-20); CALCIUM 7.9 mg/dl (8.4-10.2); CARBON DIOXIDE 29 mmol/L (21-31); CHLORIDE 95 mmol/L (97-110); GLUCOSE 160 mg/dl (70-220); POTASSIUM 3.8 mmol/L (3.5-5.1); SODIUM 135 mmol/L (135-144); TOTAL PROTEIN 4.7 g/dl (6.1-8.1)
[2018-01-13 06:48] LABS: ALANINE AMINOTRANSFERASE 1396 IU/L (13-69)
[2018-01-13 07:09] LABS: ASPARTATE AMINO TRANSFERASE 1712 IU/L (15-46)
[2018-01-13 07:35] LABS: AADO2 Arterial 115.4 mmHg (7.0-24.0); Allen Test ACCEPTAB; Arterial Base Excess 3.6 mmol/L (-3.0-3); Arterial Blood Gas Oxygen Sat 98.3 mmHG (95.0-100.0); Arterial COHb 0.2 % (0.0-3.0); Arterial HCO3 25.5 mmol/L (22.0-26.0); Arterial MetHb 0.1 % (0.0-1.5); Arterial Total Hemglobin 8.6 g/dl (12.0-18.0); Arterial pCO2 28.5 mmhg (35-45); MODE VENT - AC; Site Right Radial
[2018-01-13] MEDS: ALBUTEROL/IPRATROPIUM (NEB) 3 ML AMP HHN ×2 (08:54→16:57)
[2018-01-13] MEDS: LUBIPROSTONE 24 MCG CAP PO (09:00)
[2018-01-13] MEDS: APIXABAN 5 MG TABLET PO ×2 (09:09→21:15)
[2018-01-13] MEDS: COLLAGENASE 5 GM (UD JAR) TOP (09:09)
[2018-01-13 12:50] LABS: CREATINE KINASE 67 IU/L (23-200)
[2018-01-13 12:59] LABS: CK-MB 2.01 ng/ml (0.0-2.4)
[2018-01-13] MEDS: FUROSEMIDE 20 MG INJ IV (18:25)
[2018-01-13] MEDS: SENNA TAB PO (21:15)
[2018-01-13] MEDS: ATORVASTATIN 40 MG TAB PO (21:15)
[2018-01-13] MEDS: INSULIN GLARGINE [LANTus] (100 UNITS/ML) SYG SC (21:16)
[2018-01-13] MEDS: METOCLOPRAMIDE 10 MG INJ IV (23:03)
[2018-01-14] MEDS: INSULIN ASPART [NOVOLOG] 3 ML PEN SC ×9 (01:07→20:34)
[2018-01-14 05:35] LABS: ADD MAN DIFF? NO
[2018-01-14 05:47] LABS: BASOPHILS % 0.3 % (0.0-2.0); EOSINOPHILS # 0.1 10^3/ul (0.0-0.5); EOSINOPHILS % 1.2 % (0.0-7.0); HEMATOCRIT 25.5 % (37.0-47.0); HEMOGLOBIN 8.1 g/dl (12.0-16.0); LYMPHOCYTES # 0.8 10^3/ul (0.8-2.9); LYMPHOCYTES % 7.1 % (15.0-51.0); MEAN CORPUSCULAR HEMOGLOBIN 31.5 pg (29.0-33.0); MEAN CORPUSCULAR HGB CONC 31.8 g/dl (32.0-37.0); MEAN CORPUSCULAR VOLUME 99.2 fl (82.0-101.0); MEAN PLATELET VOLUME 11.6 fl (7.4-10.4); MONOCYTE # 0.7 10^3/ul (0.3-0.9); NEUTROPHIL # 9.2 10^3/ul (1.6-7.5); NEUTROPHILS % 84.7 % (39.0-77.0); NUCLEATED RED BLOOD CELLS% 0.4 /100WBC (0.0-0.0); PLATELET COUNT 144 10^3/UL (140-415); RED BLOOD COUNT 2.57 10^6/ul (4.20-5.40)
[2018-01-14 05:47] LABS: WHITE BLOOD COUNT 10.8 10^3/ul (4.8-10.8)
[2018-01-14] MEDS: PIPER-TAZO 2.25 GM (PMX) 50 ML IVPB ×3 (05:48→22:00)
[2018-01-14] MEDS: METOCLOPRAMIDE 10 MG INJ IV ×3 (05:48→16:54)
[2018-01-14] MEDS: FUROSEMIDE 20 MG INJ IV ×2 (05:48→16:54)
[2018-01-14 06:25] LABS: ANION GAP 15 (8-16); BLOOD UREA NITROGEN 84 mg/dl (7-20); CALCIUM 7.6 mg/dl (8.4-10.2); CARBON DIOXIDE 31 mmol/L (21-31); CHLORIDE 95 mmol/L (97-110); CREATININE 3.18 mg/dl (0.44-1.00); GLUCOSE 148 mg/dl (70-220); MAGNESIUM 2.2 mg/dl (1.7-2.5); PHOSPHORUS 3.6 mg/dl (2.5-4.9); POTASSIUM 3.6 mmol/L (3.5-5.1); SODIUM 137 mmol/L (135-144)
[2018-01-14 06:29] LABS: CK-MB 1.52 ng/ml (0.0-2.4)
[2018-01-14 07:00] LABS: CK INDEX 3.9; CREATINE KINASE 39 IU/L (23-200)
[2018-01-14] MEDS: ACCU-CHEK XX ×4 (07:05→20:34)
[2018-01-14] MEDS: ALBUTEROL/IPRATROPIUM (NEB) 3 ML AMP HHN ×2 (07:44→16:35)
[2018-01-14 07:47] LABS: AADO2 Arterial 144.5 mmHg (7.0-24.0); Allen Test ACCEPTAB; Arterial Blood Gas Oxygen Sat 96.3 mmHG (95.0-100.0); Arterial COHb 0.3 % (0.0-3.0); Arterial MetHb 0 % (0.0-1.5); Arterial Total Hemglobin 9.8 g/dl (12.0-18.0); Arterial pCO2 45.8 mmhg (35-45); MODE VENT - AC; Site Right Radial
[2018-01-14] MEDS: ASPIRIN 81 MG TAB PO (08:34)
[2018-01-14] MEDS: APIXABAN 5 MG TABLET PO ×2 (08:35→20:27)
[2018-01-14] MEDS: COLLAGENASE 5 GM (UD JAR) TOP (08:42)
[2018-01-14] MEDS ORDERED: ALBUMIN HUMAN 25% 100 ML IV (09:30)
[2018-01-14] MEDS ORDERED: SODIUM CHLORIDE 0.9% 1L BAG IV (09:30)
[2018-01-14] MEDS ORDERED: HEPARIN 1000 UNITS/ML 10 ML INJ (10:04)
[2018-01-14] MEDS: SOD CHLORIDE 0.9% 250 ML IV* (11:21)
[2018-01-14] MEDS: LIDOCAINE 1% (MPF) 5 ML VIAL SC (13:34)
[2018-01-14 14:17] LABS: HAAIG REFLEX REFLEX FILED
[2018-01-14 16:06] LABS: HEPATITIS B SURFACE ANTIGEN NEGATIVE (NEGATIVE)
[2018-01-14 16:24] LABS: HEPATITIS B CORE ANTIBODY NEGATIVE (NEGATIVE); HEPATITIS C VIRAL ANTIBODY NEGATIVE (NEGATIVE)
[2018-01-14] MEDS: ATORVASTATIN 40 MG TAB PO (20:27)
[2018-01-14] MEDS: INSULIN GLARGINE [LANTus] (100 UNITS/ML) SYG SC (20:27)
[2018-01-14] MEDS: SENNA TAB PO (20:28)
[2018-01-15] MEDS: INSULIN ASPART [NOVOLOG] 3 ML PEN SC ×9 (01:00→20:51)
[2018-01-15] MEDS: HEPARIN 1000 UNITS/ML 10 ML INJ CATHETER ×2 (01:01→15:03)
[2018-01-15] MEDS: FUROSEMIDE 20 MG INJ IV ×2 (05:27→18:54)
[2018-01-15] MEDS: PIPER-TAZO 2.25 GM (PMX) 50 ML IVPB ×3 (05:27→21:05)
[2018-01-15] MEDS: METOCLOPRAMIDE 10 MG INJ IV ×5 (05:27→23:09)
[2018-01-15 05:50] LABS: ADD MAN DIFF? NO
[2018-01-15 06:01] LABS: BASOPHILS % 0.2 % (0.0-2.0); EOSINOPHILS # 0.1 10^3/ul (0.0-0.5); EOSINOPHILS % 1.2 % (0.0-7.0); HEMATOCRIT 26.1 % (37.0-47.0); HEMOGLOBIN 8.3 g/dl (12.0-16.0); LYMPHOCYTES # 0.8 10^3/ul (0.8-2.9); MEAN CORPUSCULAR HEMOGLOBIN 31.9 pg (29.0-33.0); MEAN CORPUSCULAR HGB CONC 31.8 g/dl (32.0-37.0); MEAN CORPUSCULAR VOLUME 100.4 fl (82.0-101.0); MEAN PLATELET VOLUME 11.7 fl (7.4-10.4); MONOCYTE # 0.7 10^3/ul (0.3-0.9); MONOCYTES % 8.6 % (0.0-11.0); NEUTROPHIL # 6.7 10^3/ul (1.6-7.5); NEUTROPHILS % 80.3 % (39.0-77.0); NUCLEATED RED BLOOD CELLS% 0.2 /100WBC (0.0-0.0); PLATELET COUNT 134 10^3/UL (140-415)
[2018-01-15 06:01] LABS: WHITE BLOOD COUNT 8.4 10^3/ul (4.8-10.8)
[2018-01-15 06:20] LABS: ANION GAP 11 (8-16); BLOOD UREA NITROGEN 62 mg/dl (7-20); CALCIUM 7.5 mg/dl (8.4-10.2); CARBON DIOXIDE 31 mmol/L (21-31); CHLORIDE 98 mmol/L (97-110); CREATININE 2.78 mg/dl (0.44-1.00); GLUCOSE 124 mg/dl (70-220); MAGNESIUM 2.1 mg/dl (1.7-2.5); PHOSPHORUS 3.4 mg/dl (2.5-4.9); POTASSIUM 3.9 mmol/L (3.5-5.1); SODIUM 136 mmol/L (135-144)
[2018-01-15 06:32] LABS: CREATINE KINASE < 20 IU/L (23-200)
[2018-01-15] MEDS: ACCU-CHEK XX ×4 (07:05→20:51)
[2018-01-15] MEDS: COLLAGENASE 5 GM (UD JAR) TOP (08:42)
[2018-01-15] MEDS: ASPIRIN 81 MG TAB PO (08:42)
[2018-01-15] MEDS: APIXABAN 5 MG TABLET PO ×2 (08:42→20:53)
[2018-01-15] MEDS: METOPROLOL 25 MG TAB PO ×2 (10:30→20:52)
[2018-01-15] MEDS: ALBUTEROL/IPRATROPIUM (NEB) 3 ML AMP HHN ×2 (11:08→16:50)
[2018-01-15] MEDS: METOPROLOL 5 MG INJ IV (18:48)
[2018-01-15 19:39] LABS: LACTIC ACID 1.2 mmol/L (0.5-2.0)
[2018-01-15] MEDS: ATORVASTATIN 40 MG TAB PO (20:52)
[2018-01-15] MEDS: SENNA TAB PO (20:52)
[2018-01-15] MEDS: INSULIN GLARGINE [LANTus] (100 UNITS/ML) SYG SC (20:56)
[2018-01-16] MEDS: METOPROLOL 5 MG INJ IV ×4 (00:11→18:38)
[2018-01-16] MEDS: INSULIN ASPART [NOVOLOG] 3 ML PEN SC ×9 (01:00→21:00)
[2018-01-16] MEDS: PIPER-TAZO 2.25 GM (PMX) 50 ML IVPB ×3 (05:17→21:28)
[2018-01-16] MEDS: FUROSEMIDE 20 MG INJ IV ×2 (05:17→17:47)
[2018-01-16] MEDS: METOCLOPRAMIDE 10 MG INJ IV ×3 (05:17→17:47)
[2018-01-16 05:28] LABS: ADD MAN DIFF? NO
[2018-01-16 05:30] LABS: WHITE BLOOD COUNT 10.4 10^3/ul (4.8-10.8)
[2018-01-16 05:30] LABS: BASOPHILS % 0.3 % (0.0-2.0); EOSINOPHILS # 0.1 10^3/ul (0.0-0.5); EOSINOPHILS % 0.8 % (0.0-7.0); HEMATOCRIT 26.7 % (37.0-47.0); HEMOGLOBIN 8.3 g/dl (12.0-16.0); LYMPHOCYTES # 0.9 10^3/ul (0.8-2.9); LYMPHOCYTES % 8.7 % (15.0-51.0); MEAN CORPUSCULAR HEMOGLOBIN 31.2 pg (29.0-33.0); MEAN CORPUSCULAR HGB CONC 31.1 g/dl (32.0-37.0); MEAN CORPUSCULAR VOLUME 100.4 fl (82.0-101.0); MEAN PLATELET VOLUME 11.3 fl (7.4-10.4); MONOCYTE # 1.3 10^3/ul (0.3-0.9); MONOCYTES % 12.8 % (0.0-11.0); NEUTROPHILS % 76.8 % (39.0-77.0); NUCLEATED RED BLOOD CELLS% 0.3 /100WBC (0.0-0.0); PLATELET COUNT 124 10^3/UL (140-415); RED BLOOD COUNT 2.66 10^6/ul (4.20-5.40); RED CELL DISTRIBUTION WIDTH 17.5 % (11.5-14.5)
[2018-01-16 06:07] LABS: ALANINE AMINOTRANSFERASE 928 IU/L (13-69); ALBUMIN 2.7 g/dl (3.3-4.9); ALBUMIN/GLOBULIN RATIO 1.17; ALKALINE PHOSPHATASE 106 IU/L (42-121); ANION GAP 15 (8-16); ASPARTATE AMINO TRANSFERASE 552 IU/L (15-46); BILIRUBIN,INDIRECT 0.7 mg/dl (0-1.1); BILIRUBIN,TOTAL 0.9 mg/dl (0.2-1.3); BLOOD UREA NITROGEN 40 mg/dl (7-20); CALCIUM 7.9 mg/dl (8.4-10.2); CARBON DIOXIDE 31 mmol/L (21-31); CHLORIDE 97 mmol/L (97-110); CREATININE 2.19 mg/dl (0.44-1.00); GLUCOSE 155 mg/dl (70-220); POTASSIUM 3.9 mmol/L (3.5-5.1); SODIUM 139 mmol/L (135-144)
[2018-01-16] MEDS: ACCU-CHEK XX ×4 (07:05→21:42)
[2018-01-16] MEDS: ASPIRIN 81 MG TAB PO (08:26)
[2018-01-16] MEDS: APIXABAN 5 MG TABLET PO ×2 (08:26→21:30)
[2018-01-16] MEDS: METOPROLOL 25 MG TAB PO ×2 (08:28→21:30)
[2018-01-16] MEDS: COLLAGENASE 5 GM (UD JAR) TOP (08:31)
[2018-01-16] MEDS: ALBUTEROL/IPRATROPIUM (NEB) 3 ML AMP HHN ×2 (08:43→16:00)
[2018-01-16] MEDS: FENTAnyl (DRIP) 1000 mcg/100mL 100 ML IV (12:45)
[2018-01-16] MEDS ORDERED: CLONIDINE 0.1 MG/24 HR PATCH TRANSDERM (18:30)
[2018-01-16] MEDS: ALBUTEROL HFA 8 GM INHALER INH (19:56)
[2018-01-16] MEDS: CLONIDINE 0.1 MG/24 HR PATCH TRANSDERM (21:29)
[2018-01-16] MEDS: SENNA TAB PO (21:30)
[2018-01-16] MEDS: INSULIN GLARGINE [LANTus] (100 UNITS/ML) SYG SC (21:33)
[2018-01-17] MEDS: METOCLOPRAMIDE 10 MG INJ IV ×5 (00:33→23:30)
[2018-01-17] MEDS: INSULIN ASPART [NOVOLOG] 3 ML PEN SC ×9 (00:44→20:39)
[2018-01-17] MEDS: ALBUTEROL HFA 8 GM INHALER INH ×4 (01:15→19:14)
[2018-01-17 05:09] LABS: ADD MAN DIFF? NO
[2018-01-17 05:14] LABS: WHITE BLOOD COUNT 10.7 10^3/ul (4.8-10.8)
[2018-01-17 05:14] LABS: BASOPHILS % 0.3 % (0.0-2.0); EOSINOPHILS # 0.2 10^3/ul (0.0-0.5); EOSINOPHILS % 2.2 % (0.0-7.0); HEMATOCRIT 25.5 % (37.0-47.0); HEMOGLOBIN 7.9 g/dl (12.0-16.0); LYMPHOCYTES # 1.1 10^3/ul (0.8-2.9); LYMPHOCYTES % 10.1 % (15.0-51.0); MEAN CORPUSCULAR HEMOGLOBIN 31.9 pg (29.0-33.0); MEAN CORPUSCULAR VOLUME 102.8 fl (82.0-101.0); MEAN PLATELET VOLUME 11.9 fl (7.4-10.4); MONOCYTE # 1.4 10^3/ul (0.3-0.9); MONOCYTES % 12.9 % (0.0-11.0); NEUTROPHIL # 7.9 10^3/ul (1.6-7.5); NEUTROPHILS % 73.9 % (39.0-77.0); PLATELET COUNT 110 10^3/UL (140-415); RED BLOOD COUNT 2.48 10^6/ul (4.20-5.40); RED CELL DISTRIBUTION WIDTH 17.5 % (11.5-14.5)
[2018-01-17 05:20] LABS: AMMONIA < 9 umol/l (9-30)
[2018-01-17 05:36] LABS: ANION GAP 10 (8-16); BLOOD UREA NITROGEN 57 mg/dl (7-20); CALCIUM 8.3 mg/dl (8.4-10.2); CARBON DIOXIDE 33 mmol/L (21-31); CHLORIDE 99 mmol/L (97-110); CREATININE 2.56 mg/dl (0.44-1.00); GLUCOSE 136 mg/dl (70-220); LIPASE 245 U/L (23-300); SODIUM 138 mmol/L (135-144)
[2018-01-17] MEDS: FUROSEMIDE 20 MG INJ IV ×2 (05:39→18:03)
[2018-01-17] MEDS: PIPER-TAZO 2.25 GM (PMX) 50 ML IVPB ×3 (05:44→21:58)
[2018-01-17] MEDS ORDERED: NA BICARBONATE 8.4% 50 ML SYG (07:00)
[2018-01-17] MEDS ORDERED: CA CHLORIDE 10% 10 ML SYRINGE (07:00)
[2018-01-17] MEDS ORDERED: EPINEPHrine 0.1 MG/ML SYG (07:00)
[2018-01-17] MEDS: ACCU-CHEK XX ×4 (07:43→20:40)
[2018-01-17] MEDS: ASPIRIN 81 MG TAB PO (08:24)
[2018-01-17] MEDS: COLLAGENASE 5 GM (UD JAR) TOP (08:25)
[2018-01-17] MEDS: METOPROLOL 25 MG TAB PO ×2 (08:25→20:27)
[2018-01-17] MEDS: APIXABAN 5 MG TABLET PO ×2 (08:25→20:40)
[2018-01-17 11:05] LABS: AADO2 Arterial 90.4 mmHg (7.0-24.0); Allen Test ACCEPTAB; Arterial Base Excess 6.3 mmol/L (-3.0-3); Arterial Blood Gas Oxygen Sat 94.2 mmHG (95.0-100.0); Arterial COHb 1.5 % (0.0-3.0); Arterial Fraction of Oxyhgb 92.4 % (93.0-99.0); Arterial HCO3 30.8 mmol/L (22.0-26.0); Arterial MetHb 0.4 % (0.0-1.5); Arterial Total Hemglobin 9.7 g/dl (12.0-18.0); Arterial pCO2 44.1 mmhg (35-45); MODE VENT - AC; Site Right Radial
[2018-01-17] MEDS: DIGOXIN 0.125 MG TAB PO (12:09)
[2018-01-17] MEDS: AMIODARONE 150MG/D5W BOLUS 100 ML IV (14:08)
[2018-01-17] MEDS: AMIODARONE 900 MG in DEXTROSE 5% 482 ML IV (14:42)
[2018-01-17] MEDS: METOPROLOL 5 MG INJ IV (15:31)
[2018-01-17] MEDS: SENNA TAB PO (20:28)
[2018-01-17] MEDS: INSULIN GLARGINE [LANTus] (100 UNITS/ML) SYG SC (20:40)
[2018-01-17] MEDS: LORAZEPAM 0.5 MG TAB PO (20:42)
[2018-01-18] MEDS: METOPROLOL 5 MG INJ IV (00:22)
[2018-01-18] MEDS: INSULIN ASPART [NOVOLOG] 3 ML PEN SC ×9 (01:00→21:00)
[2018-01-18] MEDS: ALBUTEROL HFA 8 GM INHALER INH ×4 (01:57→20:14)
[2018-01-18] MEDS: DILTIAZEM 25 MG INJ IV (03:31)
[2018-01-18 05:12] LABS: ADD MAN DIFF? NO
[2018-01-18 05:20] LABS: WHITE BLOOD COUNT 11.9 10^3/ul (4.8-10.8)
[2018-01-18 05:20] LABS: BASOPHIL # 0.1 10^3/ul (0.0-0.1); BASOPHILS % 0.4 % (0.0-2.0); EOSINOPHILS # 0.2 10^3/ul (0.0-0.5); EOSINOPHILS % 1.3 % (0.0-7.0); HEMATOCRIT 27.1 % (37.0-47.0); HEMOGLOBIN 8.3 g/dl (12.0-16.0); LYMPHOCYTES # 1.3 10^3/ul (0.8-2.9); LYMPHOCYTES % 10.9 % (15.0-51.0); MEAN CORPUSCULAR HEMOGLOBIN 31.3 pg (29.0-33.0); MEAN CORPUSCULAR HGB CONC 30.6 g/dl (32.0-37.0); MEAN CORPUSCULAR VOLUME 102.3 fl (82.0-101.0); MEAN PLATELET VOLUME 11.9 fl (7.4-10.4); MONOCYTE # 1.5 10^3/ul (0.3-0.9); MONOCYTES % 12.3 % (0.0-11.0); NEUTROPHIL # 8.8 10^3/ul (1.6-7.5); NEUTROPHILS % 74.3 % (39.0-77.0); PLATELET COUNT 122 10^3/UL (140-415); RED BLOOD COUNT 2.65 10^6/ul (4.20-5.40); RED CELL DISTRIBUTION WIDTH 17.7 % (11.5-14.5)
[2018-01-18] MEDS: METOCLOPRAMIDE 10 MG INJ IV ×4 (05:48→23:07)
[2018-01-18] MEDS: FUROSEMIDE 20 MG INJ IV ×2 (05:48→17:16)
[2018-01-18] MEDS: PIPER-TAZO 2.25 GM (PMX) 50 ML IVPB ×3 (05:48→21:44)
[2018-01-18 06:13] LABS: ANION GAP 15 (8-16); BLOOD UREA NITROGEN 65 mg/dl (7-20); CALCIUM 8.7 mg/dl (8.4-10.2); CARBON DIOXIDE 30 mmol/L (21-31); CHLORIDE 96 mmol/L (97-110); CREATININE 2.88 mg/dl (0.44-1.00); GLUCOSE 182 mg/dl (70-220); PHOSPHORUS 3.5 mg/dl (2.5-4.9); SODIUM 137 mmol/L (135-144)
[2018-01-18] MEDS: ACCU-CHEK XX ×4 (08:04→21:41)
[2018-01-18] MEDS: APIXABAN 5 MG TABLET PO ×2 (08:04→21:00)
[2018-01-18] MEDS: METOPROLOL 25 MG TAB PO ×2 (08:06→21:40)
[2018-01-18] MEDS: ASPIRIN 81 MG TAB PO (08:06)
[2018-01-18] MEDS: COLLAGENASE 5 GM (UD JAR) TOP (08:09)
[2018-01-18] MEDS: HEPARIN 1000 UNITS/ML 10 ML INJ CATHETER (09:41)
[2018-01-18] MEDS: AMIODARONE 900 MG in DEXTROSE 5% 482 ML IV (13:51)
[2018-01-18] MEDS: DIGOXIN 0.125 MG TAB PO (13:55)
[2018-01-18 14:40] LABS: INR 1.92; PROTIME 22.4 Sec (11.9-14.9); PT RATIO 1.8
[2018-01-18 14:41] LABS: PARTIAL THROMBOPLASTIN TIME 32.3 Sec (25.0-35.0)
[2018-01-18] MEDS: SENNA TAB PO (21:40)
[2018-01-18] MEDS: INSULIN GLARGINE [LANTus] (100 UNITS/ML) SYG SC (21:41)
[2018-01-19] MEDS: INSULIN ASPART [NOVOLOG] 3 ML PEN SC ×9 (01:43→21:00)
[2018-01-19] MEDS: ALBUTEROL HFA 8 GM INHALER INH ×4 (02:28→20:10)
[2018-01-19] MEDS: DILTIAZEM 25 MG INJ IV ×2 (03:07→21:13)
[2018-01-19] MEDS: METOCLOPRAMIDE 10 MG INJ IV ×3 (05:12→17:29)
[2018-01-19] MEDS: PIPER-TAZO 2.25 GM (PMX) 50 ML IVPB ×3 (05:12→21:27)
[2018-01-19] MEDS: FUROSEMIDE 20 MG INJ IV ×2 (05:12→17:28)
[2018-01-19 05:41] LABS: ADD MAN DIFF? NO
[2018-01-19 05:53] LABS: WHITE BLOOD COUNT 10.9 10^3/ul (4.8-10.8)
[2018-01-19 05:53] LABS: ABNORMAL IP MESSAGE 1; BASOPHIL # 0.1 10^3/ul (0.0-0.1); BASOPHILS % 0.5 % (0.0-2.0); EOSINOPHILS # 0.2 10^3/ul (0.0-0.5); EOSINOPHILS % 1.6 % (0.0-7.0); HEMATOCRIT 27.2 % (37.0-47.0); HEMOGLOBIN 8.2 g/dl (12.0-16.0); LYMPHOCYTES # 0.9 10^3/ul (0.8-2.9); LYMPHOCYTES % 8.3 % (15.0-51.0); MEAN CORPUSCULAR HEMOGLOBIN 30.9 pg (29.0-33.0); MEAN CORPUSCULAR HGB CONC 30.1 g/dl (32.0-37.0); MEAN CORPUSCULAR VOLUME 102.6 fl (82.0-101.0); MEAN PLATELET VOLUME 11.5 fl (7.4-10.4); MONOCYTE # 1.6 10^3/ul (0.3-0.9); MONOCYTES % 14.5 % (0.0-11.0); NEUTROPHIL # 8.1 10^3/ul (1.6-7.5); PLATELET COUNT 144 10^3/UL (140-415); RED BLOOD COUNT 2.65 10^6/ul (4.20-5.40); RED CELL DISTRIBUTION WIDTH 18.2 % (11.5-14.5)
[2018-01-19 06:01] LABS: POSITIVE DIFF @See below
[2018-01-19 06:14] LABS: INR 1.72; PROTIME 20.5 Sec (11.9-14.9); PT RATIO 1.6
[2018-01-19 06:15] LABS: PARTIAL THROMBOPLASTIN TIME 34.3 Sec (23.0-35.0)
[2018-01-19 06:47] LABS: ANION GAP 13 (8-16); BLOOD UREA NITROGEN 44 mg/dl (7-20); CALCIUM 8.6 mg/dl (8.4-10.2); CARBON DIOXIDE 33 mmol/L (21-31); CHLORIDE 96 mmol/L (97-110); CREATININE 2.04 mg/dl (0.44-1.00); GLUCOSE 152 mg/dl (70-220); MAGNESIUM 1.8 mg/dl (1.7-2.5); PHOSPHORUS 2.6 mg/dl (2.5-4.9); POTASSIUM 3.5 mmol/L (3.5-5.1); SODIUM 138 mmol/L (135-144)
[2018-01-19] MEDS: APIXABAN 5 MG TABLET PO ×2 (08:37→21:16)
[2018-01-19] MEDS: ACCU-CHEK XX ×4 (08:50→21:25)
[2018-01-19] MEDS: METOPROLOL 50 MG TAB PO ×2 (09:02→21:17)
[2018-01-19] MEDS: COLLAGENASE 5 GM (UD JAR) TOP (09:02)
[2018-01-19] MEDS: ASPIRIN 81 MG TAB PO (09:03)
[2018-01-19] MEDS: DIGOXIN 0.125 MG TAB PO (12:15)
[2018-01-19] MEDS: SENNA TAB PO (21:18)
[2018-01-19] MEDS: INSULIN GLARGINE [LANTus] (100 UNITS/ML) SYG SC (21:23)
[2018-01-20] MEDS: METOCLOPRAMIDE 10 MG INJ IV ×5 (00:39→23:05)
[2018-01-20] MEDS: INSULIN ASPART [NOVOLOG] 3 ML PEN SC ×9 (00:41→21:00)
[2018-01-20] MEDS: FENTAnyl (DRIP) 1000 mcg/100mL 100 ML IV (01:02)
[2018-01-20] MEDS: ALBUTEROL HFA 8 GM INHALER INH ×3 (01:33→13:05)
[2018-01-20 04:53] LABS: ADD MAN DIFF? NO
[2018-01-20 05:01] LABS: BASOPHIL # 0.1 10^3/ul (0.0-0.1); BASOPHILS % 0.6 % (0.0-2.0); EOSINOPHILS # 0.2 10^3/ul (0.0-0.5); EOSINOPHILS % 2.6 % (0.0-7.0); HEMATOCRIT 26.5 % (37.0-47.0); HEMOGLOBIN 8.3 g/dl (12.0-16.0); LYMPHOCYTES % 11.8 % (15.0-51.0); MEAN CORPUSCULAR HEMOGLOBIN 31.8 pg (29.0-33.0); MEAN CORPUSCULAR HGB CONC 31.3 g/dl (32.0-37.0); MEAN CORPUSCULAR VOLUME 101.5 fl (82.0-101.0); MEAN PLATELET VOLUME 11.2 fl (7.4-10.4); MONOCYTE # 1.3 10^3/ul (0.3-0.9); MONOCYTES % 15.1 % (0.0-11.0); NEUTROPHIL # 6.1 10^3/ul (1.6-7.5); NEUTROPHILS % 69.3 % (39.0-77.0); PLATELET COUNT 148 10^3/UL (140-415); RED BLOOD COUNT 2.61 10^6/ul (4.20-5.40); RED CELL DISTRIBUTION WIDTH 18.5 % (11.5-14.5)
[2018-01-20 05:01] LABS: WHITE BLOOD COUNT 8.9 10^3/ul (4.8-10.8)
[2018-01-20 05:27] LABS: ANION GAP 13 (8-16); BLOOD UREA NITROGEN 54 mg/dl (7-20); CALCIUM 8.5 mg/dl (8.4-10.2); CARBON DIOXIDE 33 mmol/L (21-31); CHLORIDE 97 mmol/L (97-110); CREATININE 2.29 mg/dl (0.44-1.00); GLUCOSE 110 mg/dl (70-220); POTASSIUM 3.6 mmol/L (3.5-5.1); SODIUM 139 mmol/L (135-144)
[2018-01-20] MEDS: FUROSEMIDE 20 MG INJ IV ×2 (05:38→17:47)
[2018-01-20] MEDS: PIPER-TAZO 2.25 GM (PMX) 50 ML IVPB ×3 (05:38→22:43)
[2018-01-20] MEDS: COLLAGENASE 5 GM (UD JAR) TOP (08:05)
[2018-01-20] MEDS: ACCU-CHEK XX ×4 (09:12→21:00)
[2018-01-20] MEDS: METOPROLOL 50 MG TAB PO ×2 (12:15→22:43)
[2018-01-20] MEDS: ASPIRIN 81 MG TAB PO (12:17)
[2018-01-20] MEDS: APIXABAN 5 MG TABLET PO ×2 (12:17→22:42)
[2018-01-20] MEDS: DIGOXIN 0.125 MG TAB PO (12:17)
[2018-01-20] MEDS: HEPARIN 1000 UNITS/ML 10 ML INJ CATHETER (12:25)
[2018-01-20 16:19] LABS: AADO2 Arterial 96.8 mmHg (7.0-24.0); Arterial Base Excess 4.2 mmol/L (-3.0-3); Arterial Blood Gas Oxygen Sat 93.3 mmHG (95.0-100.0); Arterial COHb 1.3 % (0.0-3.0); Arterial Fraction of Oxyhgb 91.8 % (93.0-99.0); Arterial HCO3 29.1 mmol/L (22.0-26.0); Arterial MetHb 0.3 % (0.0-1.5); Arterial Total Hemglobin 9.9 g/dl (12.0-18.0); Blood Gas PS 10; MODE VENT - CPAP; Site Right Brachial
[2018-01-20] MEDS: hydrALAzine 20 MG INJ IV (16:37)
[2018-01-20] MEDS: SENNA TAB PO (22:42)
[2018-01-20] MEDS: INSULIN GLARGINE [LANTus] (100 UNITS/ML) SYG SC (23:00)
[2018-01-21] MEDS: INSULIN ASPART [NOVOLOG] 3 ML PEN SC ×9 (01:00→22:47)
[2018-01-21 05:02] LABS: ADD MAN DIFF? NO
[2018-01-21 05:04] LABS: BASOPHIL # 0.1 10^3/ul (0.0-0.1); BASOPHILS % 0.4 % (0.0-2.0); EOSINOPHILS # 0.1 10^3/ul (0.0-0.5); EOSINOPHILS % 0.8 % (0.0-7.0); HEMATOCRIT 28.7 % (37.0-47.0); HEMOGLOBIN 8.8 g/dl (12.0-16.0); LYMPHOCYTES # 0.8 10^3/ul (0.8-2.9); LYMPHOCYTES % 6.5 % (15.0-51.0); MEAN CORPUSCULAR HEMOGLOBIN 32.4 pg (29.0-33.0); MEAN CORPUSCULAR HGB CONC 30.7 g/dl (32.0-37.0); MEAN CORPUSCULAR VOLUME 105.5 fl (82.0-101.0); MEAN PLATELET VOLUME 10.8 fl (7.4-10.4); MONOCYTE # 1.3 10^3/ul (0.3-0.9); MONOCYTES % 10.9 % (0.0-11.0); NEUTROPHIL # 9.5 10^3/ul (1.6-7.5); NEUTROPHILS % 80.8 % (39.0-77.0); PLATELET COUNT 173 10^3/UL (140-415); RED BLOOD COUNT 2.72 10^6/ul (4.20-5.40); RED CELL DISTRIBUTION WIDTH 18.9 % (11.5-14.5)
[2018-01-21 05:04] LABS: WHITE BLOOD COUNT 11.8 10^3/ul (4.8-10.8)
[2018-01-21 05:41] LABS: ALANINE AMINOTRANSFERASE 198 IU/L (13-69); ALBUMIN 2.7 g/dl (3.3-4.9); ALBUMIN/GLOBULIN RATIO 0.93; ALKALINE PHOSPHATASE 78 IU/L (42-121); ANION GAP 14 (8-16); ASPARTATE AMINO TRANSFERASE 38 IU/L (15-46); BILIRUBIN,INDIRECT 0.6 mg/dl (0-1.1); BILIRUBIN,TOTAL 0.6 mg/dl (0.2-1.3); BLOOD UREA NITROGEN 37 mg/dl (7-20); CALCIUM 8.6 mg/dl (8.4-10.2); CARBON DIOXIDE 31 mmol/L (21-31); CHLORIDE 99 mmol/L (97-110); CREATININE 1.84 mg/dl (0.44-1.00); GLUCOSE 176 mg/dl (70-220); POTASSIUM 3.8 mmol/L (3.5-5.1); SODIUM 140 mmol/L (135-144); TOTAL PROTEIN 5.6 g/dl (6.1-8.1)
[2018-01-21] MEDS: FUROSEMIDE 20 MG INJ IV ×2 (05:49→17:10)
[2018-01-21] MEDS: METOCLOPRAMIDE 10 MG INJ IV ×3 (05:49→17:13)
[2018-01-21] MEDS: PIPER-TAZO 2.25 GM (PMX) 50 ML IVPB ×3 (05:49→22:02)
[2018-01-21] MEDS: METOPROLOL 50 MG TAB PO ×3 (05:50→22:03)
[2018-01-21] MEDS: ACCU-CHEK XX ×4 (07:05→21:30)
[2018-01-21 07:33] LABS: AADO2 Arterial 29.6 mmHg (7.0-24.0); Arterial Base Excess 3.3 mmol/L (-3.0-3); Arterial Blood Gas Oxygen Sat 98.8 mmHG (95.0-100.0); Arterial COHb 0.7 % (0.0-3.0); Arterial Fraction of Oxyhgb 97.9 % (93.0-99.0); Arterial HCO3 29.4 mmol/L (22.0-26.0); Arterial MetHb 0.2 % (0.0-1.5); Arterial Total Hemglobin 9.8 g/dl (12.0-18.0); MODE NASAL CANNULA; Site Right Brachial
[2018-01-21] MEDS: COLLAGENASE 5 GM (UD JAR) TOP (09:04)
[2018-01-21] MEDS: ASPIRIN 81 MG TAB PO (09:04)
[2018-01-21] MEDS: APIXABAN 5 MG TABLET PO ×2 (09:05→21:30)
[2018-01-21 10:05] LABS: AADO2 Arterial 48.4 mmHg (7.0-24.0); Arterial Base Excess 0.7 mmol/L (-3.0-3); Arterial Blood Gas Oxygen Sat 76.5 mmHG (95.0-100.0); Arterial COHb 0.6 % (0.0-3.0); Arterial HCO3 26.6 mmol/L (22.0-26.0); Arterial MetHb 0.1 % (0.0-1.5); Arterial Total Hemglobin 10.3 g/dl (12.0-18.0); Arterial pCO2 48.8 mmhg (35-45); MODE ROOM AIR; Site Right Brachial
[2018-01-21] MEDS: DIGOXIN 0.125 MG TAB PO (12:17)
[2018-01-21] MEDS: hydrALAzine 20 MG INJ IV (18:43)
[2018-01-21 21:14] LABS: AADO2 Arterial 94.2 mmHg (7.0-24.0); Arterial Base Excess 3.3 mmol/L (-3.0-3); Arterial Blood Gas Oxygen Sat 96.3 mmHG (95.0-100.0); Arterial COHb 0.7 % (0.0-3.0); Arterial Fraction of Oxyhgb 95.5 % (93.0-99.0); Arterial HCO3 28.7 mmol/L (22.0-26.0); Arterial MetHb 0.1 % (0.0-1.5); Arterial Total Hemglobin 10.3 g/dl (12.0-18.0); Arterial pCO2 47.5 mmhg (35-45); MODE NASAL CANNULA; Site LB
[2018-01-21] MEDS: SENNA TAB PO (21:30)
[2018-01-21] MEDS: FUROSEMIDE 40 MG INJ IV (22:46)
[2018-01-21] MEDS: INSULIN GLARGINE [LANTus] (100 UNITS/ML) SYG SC (23:10)
[2018-01-22] MEDS: METOCLOPRAMIDE 10 MG INJ IV ×4 (00:46→17:20)
[2018-01-22] MEDS: INSULIN ASPART [NOVOLOG] 3 ML PEN SC ×9 (01:33→21:00)
[2018-01-22 05:05] LABS: ADD MAN DIFF? NO
[2018-01-22 05:06] LABS: BASOPHIL # 0.1 10^3/ul (0.0-0.1); BASOPHILS % 0.4 % (0.0-2.0); EOSINOPHILS # 0.1 10^3/ul (0.0-0.5); EOSINOPHILS % 0.8 % (0.0-7.0); HEMATOCRIT 26.9 % (37.0-47.0); HEMOGLOBIN 8.4 g/dl (12.0-16.0); LYMPHOCYTES # 0.8 10^3/ul (0.8-2.9); LYMPHOCYTES % 6.4 % (15.0-51.0); MEAN CORPUSCULAR HEMOGLOBIN 32.8 pg (29.0-33.0); MEAN CORPUSCULAR HGB CONC 31.2 g/dl (32.0-37.0); MEAN CORPUSCULAR VOLUME 105.1 fl (82.0-101.0); MONOCYTE # 1.3 10^3/ul (0.3-0.9); MONOCYTES % 10.1 % (0.0-11.0); NEUTROPHIL # 10.7 10^3/ul (1.6-7.5); NEUTROPHILS % 81.8 % (39.0-77.0); PLATELET COUNT 174 10^3/UL (140-415); RED BLOOD COUNT 2.56 10^6/ul (4.20-5.40)
[2018-01-22 05:06] LABS: WHITE BLOOD COUNT 13.1 10^3/ul (4.8-10.8)
[2018-01-22] MEDS: PIPER-TAZO 2.25 GM (PMX) 50 ML IVPB ×3 (05:39→21:29)
[2018-01-22] MEDS: METOPROLOL 50 MG TAB PO ×3 (05:44→21:28)
[2018-01-22] MEDS: FUROSEMIDE 20 MG INJ IV ×2 (05:45→17:20)
[2018-01-22 05:49] LABS: IRON 48 ug/dl (35-150)
[2018-01-22 05:53] LABS: ALANINE AMINOTRANSFERASE 156 IU/L (13-69); ALBUMIN 2.8 g/dl (3.3-4.9); ALKALINE PHOSPHATASE 83 IU/L (42-121); ANION GAP 14 (8-16); ASPARTATE AMINO TRANSFERASE 27 IU/L (15-46); BILIRUBIN,INDIRECT 0.4 mg/dl (0-1.1); BILIRUBIN,TOTAL 0.4 mg/dl (0.2-1.3); BLOOD UREA NITROGEN 56 mg/dl (7-20); CALCIUM 8.8 mg/dl (8.4-10.2); CARBON DIOXIDE 34 mmol/L (21-31); CHLORIDE 98 mmol/L (97-110); CREATININE 2.02 mg/dl (0.44-1.00); GLUCOSE 171 mg/dl (70-220); POTASSIUM 3.5 mmol/L (3.5-5.1); SODIUM 142 mmol/L (135-144); TOTAL PROTEIN 5.6 g/dl (6.1-8.1)
[2018-01-22 05:58] LABS: % IRON SATURATION 18 % SAT (22-52); TOTAL IRON BINDING CAPACITY 264 ug/dl (241-421)
[2018-01-22 06:35] LABS: AADO2 Arterial 62.3 mmHg (7.0-24.0); Arterial Base Excess 6.7 mmol/L (-3.0-3); Arterial Blood Gas Oxygen Sat 96.2 mmHG (95.0-100.0); Arterial COHb 0.9 % (0.0-3.0); Arterial Fraction of Oxyhgb 95.2 % (93.0-99.0); Arterial HCO3 33.1 mmol/L (22.0-26.0); Arterial MetHb 0.1 % (0.0-1.5); Arterial Total Hemglobin 9.6 g/dl (12.0-18.0); Arterial pCO2 58.3 mmhg (35-45); MODE NASAL CANNULA; Site LB
[2018-01-22] MEDS: ACCU-CHEK XX ×4 (08:03→21:00)
[2018-01-22] MEDS: APIXABAN 5 MG TABLET PO ×2 (08:05→21:32)
[2018-01-22] MEDS: ASPIRIN 81 MG TAB PO (08:05)
[2018-01-22] MEDS: COLLAGENASE 5 GM (UD JAR) TOP (12:09)
[2018-01-22] MEDS: DIGOXIN 0.125 MG TAB PO (12:09)
[2018-01-22] MEDS: DIGOXIN 500 MCG INJ IV (12:10)
[2018-01-22] MEDS: HEPARIN 1000 UNITS/ML 10 ML INJ CATHETER (17:14)
[2018-01-22] MEDS: SENNA TAB PO (21:26)
[2018-01-22] MEDS: INSULIN GLARGINE [LANTus] (100 UNITS/ML) SYG SC (21:32)
[2018-01-23] MEDS: METOCLOPRAMIDE 10 MG INJ IV ×4 (00:24→17:43)
[2018-01-23] MEDS: INSULIN ASPART [NOVOLOG] 3 ML PEN SC ×9 (00:58→21:02)
[2018-01-23] MEDS: PIPER-TAZO 2.25 GM (PMX) 50 ML IVPB ×3 (05:12→21:41)
[2018-01-23] MEDS: FUROSEMIDE 20 MG INJ IV (05:16)
[2018-01-23] MEDS: METOPROLOL 50 MG TAB PO ×2 (05:17→13:13)
[2018-01-23] MEDS: ACCU-CHEK XX ×4 (07:05→21:00)
[2018-01-23 07:35] LABS: ADD MAN DIFF? NO
[2018-01-23 07:37] LABS: WHITE BLOOD COUNT 12.4 10^3/ul (4.8-10.8)
[2018-01-23 07:37] LABS: BASOPHILS % 0.3 % (0.0-2.0); EOSINOPHILS # 0.2 10^3/ul (0.0-0.5); EOSINOPHILS % 1.9 % (0.0-7.0); HEMATOCRIT 28.6 % (37.0-47.0); HEMOGLOBIN 8.6 g/dl (12.0-16.0); LYMPHOCYTES % 7.8 % (15.0-51.0); MEAN CORPUSCULAR HEMOGLOBIN 32.3 pg (29.0-33.0); MEAN CORPUSCULAR HGB CONC 30.1 g/dl (32.0-37.0); MEAN CORPUSCULAR VOLUME 107.5 fl (82.0-101.0); MEAN PLATELET VOLUME 11.2 fl (7.4-10.4); MONOCYTE # 1.3 10^3/ul (0.3-0.9); MONOCYTES % 10.1 % (0.0-11.0); NEUTROPHIL # 9.9 10^3/ul (1.6-7.5); NEUTROPHILS % 79.3 % (39.0-77.0); PLATELET COUNT 185 10^3/UL (140-415); RED BLOOD COUNT 2.66 10^6/ul (4.20-5.40); RED CELL DISTRIBUTION WIDTH 19.3 % (11.5-14.5)
[2018-01-23 07:57] LABS: ANION GAP 13 (8-16); BLOOD UREA NITROGEN 40 mg/dl (7-20); CALCIUM 8.8 mg/dl (8.4-10.2); CARBON DIOXIDE 33 mmol/L (21-31); CHLORIDE 99 mmol/L (97-110); CREATININE 1.65 mg/dl (0.44-1.00); GLUCOSE 158 mg/dl (70-220); POTASSIUM 4.2 mmol/L (3.5-5.1); SODIUM 141 mmol/L (135-144)
[2018-01-23] MEDS: ASPIRIN 81 MG TAB PO (08:11)
[2018-01-23] MEDS: APIXABAN 5 MG TABLET PO (08:11)
[2018-01-23] MEDS: COLLAGENASE 5 GM (UD JAR) TOP (08:28)
[2018-01-23 11:47] LABS: AADO2 Arterial 147.8 mmHg (7.0-24.0); Arterial Base Excess 6.7 mmol/L (-3.0-3); Arterial Blood Gas Oxygen Sat 97.3 mmHG (95.0-100.0); Arterial COHb 0.9 % (0.0-3.0); Arterial Fraction of Oxyhgb 96.4 % (93.0-99.0); Arterial MetHb 0 % (0.0-1.5); Arterial Total Hemglobin 9.4 g/dl (12.0-18.0); Arterial pCO2 43.7 mmhg (35-45); Blood Gas IEPAP 15/5; Blood Gas PS 10; MODE MASK - BIPAP; Site Right Brachial
[2018-01-23] MEDS: BUMETANIDE 1 MG INJ IV (13:14)
[2018-01-23] MEDS: FUROSEMIDE 40 MG INJ IV (17:43)
[2018-01-23] MEDS: INSULIN GLARGINE [LANTus] (100 UNITS/ML) SYG SC (21:01)
[2018-01-23] MEDS: CLONIDINE 0.1 MG/24 HR PATCH TRANSDERM (21:43)
[2018-01-23] MEDS: LORAZEPAM 0.5 MG TAB PO (22:25)
[2018-01-24] MEDS: METOCLOPRAMIDE 10 MG INJ IV ×4 (00:57→17:12)
[2018-01-24] MEDS: INSULIN ASPART [NOVOLOG] 3 ML PEN SC ×9 (00:57→21:00)
[2018-01-24] MEDS: LORAZEPAM 2 MG INJ IV ×3 (00:57→19:21)
[2018-01-24 04:40] LABS: ADD MAN DIFF? NO
[2018-01-24 04:42] LABS: WHITE BLOOD COUNT 10.2 10^3/ul (4.8-10.8)
[2018-01-24 04:42] LABS: BASOPHIL # 0.1 10^3/ul (0.0-0.1); BASOPHILS % 0.6 % (0.0-2.0); EOSINOPHILS # 0.3 10^3/ul (0.0-0.5); EOSINOPHILS % 2.7 % (0.0-7.0); HEMATOCRIT 25.2 % (37.0-47.0); HEMOGLOBIN 7.7 g/dl (12.0-16.0); LYMPHOCYTES # 1.2 10^3/ul (0.8-2.9); LYMPHOCYTES % 11.7 % (15.0-51.0); MEAN CORPUSCULAR HEMOGLOBIN 32.2 pg (29.0-33.0); MEAN CORPUSCULAR HGB CONC 30.6 g/dl (32.0-37.0); MEAN CORPUSCULAR VOLUME 105.4 fl (82.0-101.0); MEAN PLATELET VOLUME 10.8 fl (7.4-10.4); MONOCYTES % 9.9 % (0.0-11.0); NEUTROPHIL # 7.6 10^3/ul (1.6-7.5); NEUTROPHILS % 74.4 % (39.0-77.0); PLATELET COUNT 172 10^3/UL (140-415); RED BLOOD COUNT 2.39 10^6/ul (4.20-5.40); RED CELL DISTRIBUTION WIDTH 19.2 % (11.5-14.5)
[2018-01-24 05:00] LABS: AADO2 Arterial 106.7 mmHg (7.0-24.0); Allen Test ACCEPTAB; Arterial Base Excess 8.4 mmol/L (-3.0-3); Arterial Blood Gas Oxygen Sat 98.7 mmHG (95.0-100.0); Arterial COHb 1.2 % (0.0-3.0); Arterial Fraction of Oxyhgb 97.4 % (93.0-99.0); Arterial HCO3 32.4 mmol/L (22.0-26.0); Arterial MetHb 0.1 % (0.0-1.5); Arterial Total Hemglobin 8.4 g/dl (12.0-18.0); Blood Gas IEPAP 15/5; Blood Gas PS 10; MODE MASK - BIPAP; Site Right Radial
[2018-01-24 05:06] LABS: ANION GAP 15 (8-16); BLOOD UREA NITROGEN 54 mg/dl (7-20); CALCIUM 8.7 mg/dl (8.4-10.2); CARBON DIOXIDE 32 mmol/L (21-31); CHLORIDE 98 mmol/L (97-110); CREATININE 2.08 mg/dl (0.44-1.00); GLUCOSE 96 mg/dl (70-220); POTASSIUM 3.8 mmol/L (3.5-5.1); SODIUM 141 mmol/L (135-144)
[2018-01-24] MEDS: FUROSEMIDE 40 MG INJ IV ×2 (05:42→17:12)
[2018-01-24] MEDS: PIPER-TAZO 2.25 GM (PMX) 50 ML IVPB ×3 (05:42→21:16)
[2018-01-24] MEDS: METOPROLOL 50 MG TAB PO ×4 (05:43→21:16)
[2018-01-24] MEDS: ACCU-CHEK XX ×4 (07:05→21:02)
[2018-01-24] MEDS: ASPIRIN 81 MG TAB PO (08:53)
[2018-01-24] MEDS: COLLAGENASE 5 GM (UD JAR) TOP (08:54)
[2018-01-24] MEDS: APIXABAN 5 MG TABLET PO ×3 (08:54→20:47)
[2018-01-24] MEDS: SENNA TAB PO ×2 (20:47)
[2018-01-24] MEDS: INSULIN GLARGINE [LANTus] (100 UNITS/ML) SYG SC (21:02)
[2018-01-24] MEDS: traMADol 50 MG TAB PO (21:18)
[2018-01-25] MEDS: INSULIN ASPART [NOVOLOG] 3 ML PEN SC ×4 (01:00→18:23)
[2018-01-25] MEDS: METOCLOPRAMIDE 10 MG INJ IV ×4 (01:27→18:11)
[2018-01-25] MEDS: LORAZEPAM 2 MG INJ IV (01:47)
[2018-01-25 04:50] LABS: AADO2 Arterial 93.8 mmHg (7.0-24.0); Allen Test ACCEPTAB; Arterial Base Excess 5.5 mmol/L (-3.0-3); Arterial Blood Gas Oxygen Sat 97.7 mmHG (95.0-100.0); Arterial COHb 1.3 % (0.0-3.0); Arterial Fraction of Oxyhgb 96.2 % (93.0-99.0); Arterial HCO3 30.6 mmol/L (22.0-26.0); Arterial MetHb 0.2 % (0.0-1.5); Arterial Total Hemglobin 9.2 g/dl (12.0-18.0); Arterial pCO2 47.9 mmhg (35-45); Blood Gas PS 7; MODE MASK - BIPAP; Site Right Radial
[2018-01-25] MEDS: FUROSEMIDE 40 MG INJ IV ×2 (05:19→18:11)
[2018-01-25] MEDS: PIPER-TAZO 2.25 GM (PMX) 50 ML IVPB (05:19)
[2018-01-25] MEDS: METOPROLOL 50 MG TAB PO ×3 (05:20→21:24)
[2018-01-25 05:23] LABS: ADD MAN DIFF? NO
[2018-01-25 05:27] LABS: WHITE BLOOD COUNT 10.4 10^3/ul (4.8-10.8)
[2018-01-25 05:27] LABS: BASOPHILS % 0.2 % (0.0-2.0); EOSINOPHILS # 0.4 10^3/ul (0.0-0.5); EOSINOPHILS % 3.8 % (0.0-7.0); HEMATOCRIT 25.8 % (37.0-47.0); HEMOGLOBIN 7.9 g/dl (12.0-16.0); LYMPHOCYTES % 9.9 % (15.0-51.0); MEAN CORPUSCULAR HEMOGLOBIN 32.4 pg (29.0-33.0); MEAN CORPUSCULAR HGB CONC 30.6 g/dl (32.0-37.0); MEAN CORPUSCULAR VOLUME 105.7 fl (82.0-101.0); MEAN PLATELET VOLUME 10.8 fl (7.4-10.4); MONOCYTE # 0.8 10^3/ul (0.3-0.9); MONOCYTES % 7.2 % (0.0-11.0); NEUTROPHIL # 8.2 10^3/ul (1.6-7.5); NEUTROPHILS % 78.3 % (39.0-77.0); PLATELET COUNT 183 10^3/UL (140-415); RED BLOOD COUNT 2.44 10^6/ul (4.20-5.40); RED CELL DISTRIBUTION WIDTH 19.1 % (11.5-14.5)
[2018-01-25] MEDS: DEXTROSE 50% 50 ML SYRINGE IV (05:27)
[2018-01-25 05:49] LABS: LACTIC ACID 0.9 mmol/L (0.5-2.0)
[2018-01-25 05:52] LABS: ANION GAP 15 (8-16); BLOOD UREA NITROGEN 73 mg/dl (7-20); CALCIUM 8.6 mg/dl (8.4-10.2); CARBON DIOXIDE 31 mmol/L (21-31); CHLORIDE 99 mmol/L (97-110); POTASSIUM 3.7 mmol/L (3.5-5.1)
[2018-01-25 06:23] LABS: SODIUM 141 mmol/L (135-144)
[2018-01-25 06:24] LABS: GLUCOSE 44 mg/dl (70-220)
[2018-01-25] MEDS: HALOPERIDOL 5 MG INJ IV (06:34)
[2018-01-25] MEDS: ASPIRIN 81 MG TAB PO (09:20)
[2018-01-25] MEDS: APIXABAN 5 MG TABLET PO ×2 (09:20→21:24)
[2018-01-25] MEDS: COLLAGENASE 5 GM (UD JAR) TOP (09:21)
[2018-01-25] MEDS: HEPARIN 1000 UNITS/ML 10 ML INJ CATHETER (10:06)
[2018-01-25] MEDS: SENNA TAB PO (21:23)
[2018-01-25] MEDS: INSULIN GLARGINE [LANTus] (100 UNITS/ML) SYG SC (21:34)
[2018-01-26] MEDS: INSULIN ASPART [NOVOLOG] 3 ML PEN SC ×5 (00:20→23:41)
[2018-01-26] MEDS: METOCLOPRAMIDE 10 MG INJ IV ×5 (00:22→23:39)
[2018-01-26 05:16] LABS: ADD MAN DIFF? NO
[2018-01-26 05:21] LABS: BASOPHILS % 0.2 % (0.0-2.0); EOSINOPHILS # 0.4 10^3/ul (0.0-0.5); EOSINOPHILS % 3.4 % (0.0-7.0); HEMATOCRIT 26.8 % (37.0-47.0); HEMOGLOBIN 8.1 g/dl (12.0-16.0); LYMPHOCYTES % 8.5 % (15.0-51.0); MEAN CORPUSCULAR HEMOGLOBIN 32.3 pg (29.0-33.0); MEAN CORPUSCULAR HGB CONC 30.2 g/dl (32.0-37.0); MEAN CORPUSCULAR VOLUME 106.8 fl (82.0-101.0); MEAN PLATELET VOLUME 10.4 fl (7.4-10.4); MONOCYTE # 0.8 10^3/ul (0.3-0.9); MONOCYTES % 6.5 % (0.0-11.0); NEUTROPHIL # 9.6 10^3/ul (1.6-7.5); NEUTROPHILS % 80.9 % (39.0-77.0); PLATELET COUNT 166 10^3/UL (140-415); RED BLOOD COUNT 2.51 10^6/ul (4.20-5.40); RED CELL DISTRIBUTION WIDTH 19.4 % (11.5-14.5)
[2018-01-26 05:21] LABS: WHITE BLOOD COUNT 11.9 10^3/ul (4.8-10.8)
[2018-01-26 05:56] LABS: ALANINE AMINOTRANSFERASE 70 IU/L (13-69); ALBUMIN 2.5 g/dl (3.3-4.9); ALBUMIN/GLOBULIN RATIO 0.86; ALKALINE PHOSPHATASE 74 IU/L (42-121); ANION GAP 13 (8-16); ASPARTATE AMINO TRANSFERASE 23 IU/L (15-46); BILIRUBIN,INDIRECT 0.3 mg/dl (0-1.1); BILIRUBIN,TOTAL 0.3 mg/dl (0.2-1.3); BLOOD UREA NITROGEN 50 mg/dl (7-20); CALCIUM 8.4 mg/dl (8.4-10.2); CARBON DIOXIDE 31 mmol/L (21-31); CHLORIDE 100 mmol/L (97-110); CREATININE 2.14 mg/dl (0.44-1.00); GLUCOSE 131 mg/dl (70-220); SODIUM 140 mmol/L (135-144); TOTAL PROTEIN 5.4 g/dl (6.1-8.1)
[2018-01-26] MEDS: FUROSEMIDE 40 MG INJ IV ×2 (06:21→18:22)
[2018-01-26] MEDS: METOPROLOL 50 MG TAB PO ×3 (06:21→21:28)
[2018-01-26] MEDS: APIXABAN 5 MG TABLET PO ×2 (09:05→21:27)
[2018-01-26] MEDS: ASPIRIN 81 MG TAB PO (09:05)
[2018-01-26] MEDS: COLLAGENASE 5 GM (UD JAR) TOP (09:05)
[2018-01-26] MEDS: SENNA TAB PO (21:27)
[2018-01-26] MEDS: INSULIN GLARGINE [LANTus] (100 UNITS/ML) SYG SC (21:35)
[2018-01-27] MEDS: METOCLOPRAMIDE 10 MG INJ IV ×3 (05:29→17:42)
[2018-01-27] MEDS: FUROSEMIDE 40 MG INJ IV ×2 (05:29→17:42)
[2018-01-27] MEDS: METOPROLOL 50 MG TAB PO ×3 (05:30→21:37)
[2018-01-27 05:37] LABS: ADD MAN DIFF? NO
[2018-01-27] MEDS: INSULIN ASPART [NOVOLOG] 3 ML PEN SC ×3 (05:38→17:55)
[2018-01-27 05:45] LABS: BASOPHILS % 0.1 % (0.0-2.0); EOSINOPHILS # 0.4 10^3/ul (0.0-0.5); EOSINOPHILS % 3.7 % (0.0-7.0); HEMATOCRIT 26.4 % (37.0-47.0); LYMPHOCYTES # 1.2 10^3/ul (0.8-2.9); LYMPHOCYTES % 10.7 % (15.0-51.0); MEAN CORPUSCULAR HEMOGLOBIN 32.5 pg (29.0-33.0); MEAN CORPUSCULAR HGB CONC 30.3 g/dl (32.0-37.0); MEAN CORPUSCULAR VOLUME 107.3 fl (82.0-101.0); MEAN PLATELET VOLUME 10.5 fl (7.4-10.4); MONOCYTE # 0.7 10^3/ul (0.3-0.9); MONOCYTES % 6.3 % (0.0-11.0); NEUTROPHIL # 8.8 10^3/ul (1.6-7.5); NEUTROPHILS % 78.6 % (39.0-77.0); PLATELET COUNT 167 10^3/UL (140-415); RED BLOOD COUNT 2.46 10^6/ul (4.20-5.40); RED CELL DISTRIBUTION WIDTH 19.6 % (11.5-14.5)
[2018-01-27 05:45] LABS: WHITE BLOOD COUNT 11.2 10^3/ul (4.8-10.8)
[2018-01-27 06:16] LABS: ANION GAP 10 (8-16); BLOOD UREA NITROGEN 62 mg/dl (7-20); CALCIUM 8.5 mg/dl (8.4-10.2); CARBON DIOXIDE 33 mmol/L (21-31); CHLORIDE 101 mmol/L (97-110); CREATININE 2.66 mg/dl (0.44-1.00); GLUCOSE 211 mg/dl (70-220); POTASSIUM 4.6 mmol/L (3.5-5.1); SODIUM 139 mmol/L (135-144)
[2018-01-27] MEDS: ASPIRIN 81 MG TAB PO (10:28)
[2018-01-27] MEDS: APIXABAN 5 MG TABLET PO ×2 (10:28→21:43)
[2018-01-27] MEDS: COLLAGENASE 5 GM (UD JAR) TOP (10:29)
[2018-01-27] MEDS: ALBUMIN HUMAN 25% 100 ML IV (11:34)
[2018-01-27] MEDS: HEPARIN 1000 UNITS/ML 10 ML INJ CATHETER (13:23)
[2018-01-27] MEDS: INSULIN GLARGINE [LANTus] (100 UNITS/ML) SYG SC (21:45)
[2018-01-27] MEDS: SENNA TAB PO (21:45)
[2018-01-28] MEDS: METOCLOPRAMIDE 10 MG INJ IV ×4 (00:42→17:10)
[2018-01-28] MEDS: INSULIN ASPART [NOVOLOG] 3 ML PEN SC ×4 (00:50→17:08)
[2018-01-28] MEDS: METOPROLOL 50 MG TAB PO ×3 (05:24→22:27)
[2018-01-28] MEDS: FUROSEMIDE 40 MG INJ IV ×2 (05:24→17:10)
[2018-01-28 05:39] LABS: ADD MAN DIFF? NO
[2018-01-28 05:49] LABS: BASOPHILS % 0.2 % (0.0-2.0); EOSINOPHILS # 0.4 10^3/ul (0.0-0.5); HEMATOCRIT 25.1 % (37.0-47.0); HEMOGLOBIN 7.6 g/dl (12.0-16.0); LYMPHOCYTES # 1.5 10^3/ul (0.8-2.9); MEAN CORPUSCULAR HEMOGLOBIN 32.6 pg (29.0-33.0); MEAN CORPUSCULAR HGB CONC 30.3 g/dl (32.0-37.0); MEAN CORPUSCULAR VOLUME 107.7 fl (82.0-101.0); MEAN PLATELET VOLUME 10.5 fl (7.4-10.4); MONOCYTES % 9.2 % (0.0-11.0); NEUTROPHIL # 7.8 10^3/ul (1.6-7.5); NEUTROPHILS % 72.1 % (39.0-77.0); PLATELET COUNT 153 10^3/UL (140-415); RED BLOOD COUNT 2.33 10^6/ul (4.20-5.40); RED CELL DISTRIBUTION WIDTH 19.5 % (11.5-14.5)
[2018-01-28 05:49] LABS: WHITE BLOOD COUNT 10.7 10^3/ul (4.8-10.8)
[2018-01-28 06:08] LABS: ANION GAP 12 (8-16); BLOOD UREA NITROGEN 46 mg/dl (7-20); CALCIUM 8.6 mg/dl (8.4-10.2); CARBON DIOXIDE 32 mmol/L (21-31); CHLORIDE 100 mmol/L (97-110); CREATININE 2.09 mg/dl (0.44-1.00); GLUCOSE 144 mg/dl (70-220); POTASSIUM 4.4 mmol/L (3.5-5.1); SODIUM 140 mmol/L (135-144)
[2018-01-28] MEDS: POLYETHYLENE GLYCOL 17 GM PACKET PO (09:00)
[2018-01-28] MEDS: COLLAGENASE 5 GM (UD JAR) TOP (09:48)
[2018-01-28] MEDS: APIXABAN 5 MG TABLET PO ×3 (09:49→21:21)
[2018-01-28] MEDS: ASPIRIN 81 MG TAB PO ×2 (09:55→21:21)
[2018-01-28] MEDS: SENNA TAB PO (22:27)
[2018-01-28] MEDS: INSULIN GLARGINE [LANTus] (100 UNITS/ML) SYG SC (22:30)
[2018-01-29] MEDS: METOCLOPRAMIDE 10 MG INJ IV ×4 (00:59→17:40)
[2018-01-29] MEDS: INSULIN ASPART [NOVOLOG] 3 ML PEN SC ×4 (01:05→17:40)
[2018-01-29] MEDS: METOPROLOL 50 MG TAB PO ×3 (04:37→22:01)
[2018-01-29] MEDS: FUROSEMIDE 40 MG INJ IV ×2 (06:04→17:40)
[2018-01-29] MEDS: COLLAGENASE 5 GM (UD JAR) TOP (09:00)
[2018-01-29 09:05] LABS: ADD MAN DIFF? NO
[2018-01-29 09:06] LABS: WHITE BLOOD COUNT 9.1 10^3/ul (4.8-10.8)
[2018-01-29 09:06] LABS: BASOPHILS % 0.3 % (0.0-2.0); EOSINOPHILS # 0.5 10^3/ul (0.0-0.5); HEMATOCRIT 26.9 % (37.0-47.0); HEMOGLOBIN 7.9 g/dl (12.0-16.0); LYMPHOCYTES # 1.5 10^3/ul (0.8-2.9); LYMPHOCYTES % 16.6 % (15.0-51.0); MEAN CORPUSCULAR HEMOGLOBIN 32.1 pg (29.0-33.0); MEAN CORPUSCULAR HGB CONC 29.4 g/dl (32.0-37.0); MEAN CORPUSCULAR VOLUME 109.3 fl (82.0-101.0); MEAN PLATELET VOLUME 10.1 fl (7.4-10.4); MONOCYTE # 0.9 10^3/ul (0.3-0.9); MONOCYTES % 10.3 % (0.0-11.0); NEUTROPHIL # 6.1 10^3/ul (1.6-7.5); NEUTROPHILS % 67.2 % (39.0-77.0); PLATELET COUNT 168 10^3/UL (140-415); RED BLOOD COUNT 2.46 10^6/ul (4.20-5.40); RED CELL DISTRIBUTION WIDTH 19.2 % (11.5-14.5)
[2018-01-29 09:25] LABS: INR 1.36; PT RATIO 1.3
[2018-01-29 09:26] LABS: PARTIAL THROMBOPLASTIN TIME 31.3 Sec (23.0-35.0)
[2018-01-29] MEDS: POLYETHYLENE GLYCOL 17 GM PACKET PO (10:26)
[2018-01-29] MEDS ORDERED: ALBUMIN HUMAN 25% 100 ML IV (17:00)
[2018-01-29] MEDS ORDERED: VITAMIN A & D 5 GM OINT PACKET TOP (18:01)
[2018-01-29] MEDS: HEPARIN 1000 UNITS/ML 10 ML INJ CATHETER (20:15)
[2018-01-29] MEDS: SENNA TAB PO (21:44)
[2018-01-29] MEDS: APIXABAN 5 MG TABLET PO (21:44)
[2018-01-29] MEDS: INSULIN GLARGINE [LANTus] (100 UNITS/ML) SYG SC (21:48)
[2018-01-30] MEDS: METOCLOPRAMIDE 10 MG INJ IV ×4 (00:34→17:21)
[2018-01-30] MEDS: INSULIN ASPART [NOVOLOG] 3 ML PEN SC ×4 (00:43→17:20)
[2018-01-30] MEDS: METOPROLOL 50 MG TAB PO ×3 (05:54→21:22)
[2018-01-30] MEDS: FUROSEMIDE 40 MG INJ IV ×2 (05:55→17:21)
[2018-01-30] MEDS: POLYETHYLENE GLYCOL 17 GM PACKET PO (09:00)
[2018-01-30] MEDS: ASPIRIN 81 MG TAB PO (09:57)
[2018-01-30] MEDS: APIXABAN 5 MG TABLET PO ×2 (09:57→21:16)
[2018-01-30] MEDS: COLLAGENASE 5 GM (UD JAR) TOP (09:58)
[2018-01-30] MEDS: SENNA TAB PO (21:16)
[2018-01-30] MEDS: CLONIDINE 0.1 MG/24 HR PATCH TRANSDERM (21:20)
[2018-01-30] MEDS: INSULIN GLARGINE [LANTus] (100 UNITS/ML) SYG SC (23:37)
[2018-01-31] MEDS: METOCLOPRAMIDE 10 MG INJ IV ×4 (00:55→18:47)
[2018-01-31] MEDS: INSULIN ASPART [NOVOLOG] 3 ML PEN SC ×4 (01:04→18:00)
[2018-01-31] MEDS: FUROSEMIDE 40 MG INJ IV ×2 (05:38→18:48)
[2018-01-31] MEDS: METOPROLOL 50 MG TAB PO ×3 (05:39→21:36)
[2018-01-31] MEDS: ASPIRIN 81 MG TAB PO (09:00)
[2018-01-31] MEDS ORDERED: morphine LIQ (10 MG/5 ML) CUP (09:52)
[2018-01-31] MEDS ORDERED: ACETAMINOPHEN/CODEINE #3 TAB (09:52)
[2018-01-31] MEDS: POLYETHYLENE GLYCOL 17 GM PACKET PO ×2 (10:23→15:19)
[2018-01-31] MEDS: APIXABAN 5 MG TABLET PO (10:23)
[2018-01-31] MEDS: COLLAGENASE 5 GM (UD JAR) TOP (10:24)
[2018-01-31] MEDS: SENNA TAB PO (21:35)
[2018-01-31] MEDS: INSULIN GLARGINE [LANTus] (100 UNITS/ML) SYG SC (23:30)
[2018-02-01] MEDS: METOCLOPRAMIDE 10 MG INJ IV ×5 (00:20→23:34)
[2018-02-01] MEDS: ALBUTEROL 0.083% (NEB) 2.5 MG/3 ML AMP HHN (05:36)
[2018-02-01 05:42] LABS: ADD MAN DIFF? NO
[2018-02-01 05:57] LABS: WHITE BLOOD COUNT 9.7 10^3/ul (4.8-10.8)
[2018-02-01 05:57] LABS: BASOPHIL # 0.1 10^3/ul (0.0-0.1); BASOPHILS % 0.6 % (0.0-2.0); EOSINOPHILS # 0.3 10^3/ul (0.0-0.5); EOSINOPHILS % 2.8 % (0.0-7.0); HEMATOCRIT 28.5 % (37.0-47.0); HEMOGLOBIN 8.3 g/dl (12.0-16.0); LYMPHOCYTES # 2.3 10^3/ul (0.8-2.9); LYMPHOCYTES % 23.8 % (15.0-51.0); MEAN CORPUSCULAR HEMOGLOBIN 32.8 pg (29.0-33.0); MEAN CORPUSCULAR HGB CONC 29.1 g/dl (32.0-37.0); MEAN CORPUSCULAR VOLUME 112.6 fl (82.0-101.0); MEAN PLATELET VOLUME 10.4 fl (7.4-10.4); MONOCYTE # 1.2 10^3/ul (0.3-0.9); MONOCYTES % 12.4 % (0.0-11.0); NEUTROPHIL # 5.7 10^3/ul (1.6-7.5); NEUTROPHILS % 59.2 % (39.0-77.0); PLATELET COUNT 203 10^3/UL (140-415); RED BLOOD COUNT 2.53 10^6/ul (4.20-5.40); RED CELL DISTRIBUTION WIDTH 18.9 % (11.5-14.5)
[2018-02-01] MEDS: INSULIN ASPART [NOVOLOG] 3 ML PEN SC ×5 (06:00→23:34)
[2018-02-01 06:23] LABS: ALANINE AMINOTRANSFERASE 34 IU/L (13-69); ALBUMIN 3.4 g/dl (3.3-4.9); ALBUMIN/GLOBULIN RATIO 1.17; ALKALINE PHOSPHATASE 108 IU/L (42-121); ANION GAP 12 (8-16); ASPARTATE AMINO TRANSFERASE 22 IU/L (15-46); BILIRUBIN,INDIRECT 0.1 mg/dl (0-1.1); BILIRUBIN,TOTAL 0.1 mg/dl (0.2-1.3); BLOOD UREA NITROGEN 58 mg/dl (7-20); CALCIUM 8.8 mg/dl (8.4-10.2); CARBON DIOXIDE 32 mmol/L (21-31); CHLORIDE 104 mmol/L (97-110); CREATININE 3.05 mg/dl (0.44-1.00); GLUCOSE 142 mg/dl (70-220); POTASSIUM 5.4 mmol/L (3.5-5.1); SODIUM 143 mmol/L (135-144); TOTAL PROTEIN 6.3 g/dl (6.1-8.1)
[2018-02-01] MEDS: FUROSEMIDE 40 MG INJ IV ×2 (06:39→18:13)
[2018-02-01] MEDS: METOPROLOL 50 MG TAB PO ×3 (07:12→20:41)
[2018-02-01] MEDS: COLLAGENASE 5 GM (UD JAR) TOP (09:00)
[2018-02-01] MEDS: POLYETHYLENE GLYCOL 17 GM PACKET PO (09:00)
[2018-02-01] MEDS: HEPARIN 1000 UNITS/ML 10 ML INJ CATHETER (11:35)
[2018-02-01] MEDS: DEXTROSE 10% 1,000 ML IV (20:40)
[2018-02-01] MEDS: SENNA TAB PO (20:41)
[2018-02-02] MEDS: FUROSEMIDE 40 MG INJ IV (05:55)
[2018-02-02] MEDS: METOCLOPRAMIDE 10 MG INJ IV ×2 (05:56→11:56)
[2018-02-02] MEDS: METOPROLOL 50 MG TAB PO (05:56)
[2018-02-02] MEDS: INSULIN ASPART [NOVOLOG] 3 ML PEN SC ×2 (06:00→11:56)
[2018-02-02] MEDS: SOD CHLORIDE 0.9% 500 ML IV (07:05)
[2018-02-02] MEDS: POLYETHYLENE GLYCOL 17 GM PACKET PO (08:58)
[2018-02-02] MEDS: COLLAGENASE 5 GM (UD JAR) TOP (08:59)
[2018-02-02] MEDS: ALBUMIN HUMAN 25% 100 ML IV (10:41)
[2018-02-02] MEDS: HEPARIN 1000 UNITS/ML 10 ML INJ CATHETER (13:27)
[2018-02-02] MEDS: DEXTROSE 10% 1,000 ML IV (19:30)
[2018-02-02] MEDS: SENNA TAB PO (19:36)
[2018-02-02] MEDS: BALSAM PERU/CASTOR OIL 60 GM TUBE TOP (20:48)
[2018-02-03] MEDS: BALSAM PERU/CASTOR OIL 60 GM TUBE TOP (08:54)
[2018-02-03] MEDS: LORAZEPAM 2 MG INJ IV (08:54)
[2018-02-03] MEDS: COLLAGENASE 5 GM (UD JAR) TOP (08:54)
[2018-02-03] MEDS ORDERED: LORAZEPAM 2 MG INJ IV (09:30)
[2018-02-03] MEDS ORDERED: ATROPINE SULFATE 1% 5ML SL (09:30)
[2018-02-03] MEDS ORDERED: ACETAMINOPHEN 650 MG SUPP PR (09:30)
[2018-02-03] MEDS ORDERED: ONDANSETRON 4 MG INJ IV (09:30)
[2018-02-03] MEDS ORDERED: BISACODYL 10 MG SUPP PR (09:30)
[2018-02-03] MEDS: morphine (DRIP) 100 MG/100 ML 100 ML IV (12:24)
[2018-02-03] MEDS: [UNRECOGNIZED DRUG - REMARK] XX (12:56)
== END 2018-02-03 18:50 | disposition expired | DRG 291 ==
LOC: ICU 01-11 13:33 → 6WM 01-27 06:20 → E/R 18:05 → 6WM 19:46
PROC: 0JH63XZ Insertion of Tunneled Vascular Access Device into Chest Subcutaneous Tissue and Fascia, Percutaneous Approach (ICD-10-PCS; 2018-01-29 13:00)
PROC: 02H633Z Insertion of Infusion Device into Right Atrium, Percutaneous Approach (ICD-10-PCS; 2018-01-29 13:00)
PROC: 5A1955Z Respiratory Ventilation, Greater than 96 Consecutive Hours (ICD-10-PCS; principal; 2018-01-29 14:35)
PROC: 5A12012 Performance of Cardiac Output, Single, Manual (ICD-10-PCS; 2018-01-29 14:35)
PROC: 0BH17EZ Insertion of Endotracheal Airway into Trachea, Via Natural or Artificial Opening (ICD-10-PCS; 2018-01-29 14:35)
PROC: 06HM33Z Insertion of Infusion Device into Right Femoral Vein, Percutaneous Approach (ICD-10-PCS; 2018-01-29 14:35)
PROC: 06HY33Z Insertion of Infusion Device into Lower Vein, Percutaneous Approach (ICD-10-PCS; 2018-01-29 14:35)
PROC: B54CZZA Ultrasonography of Left Lower Extremity Veins, Guidance (ICD-10-PCS; 2018-01-29 14:35)
PROC: 5A1D70Z Performance of Urinary Filtration, Intermittent, Less than 6 Hours Per Day (ICD-10-PCS; 2018-01-29 14:35)
PROC: 5A09357 Assistance with Respiratory Ventilation, Less than 24 Consecutive Hours, Continuous Positive Airway Pressure (ICD-10-PCS; 2018-01-29 14:35)
DX: I50.23 Acute on chronic systolic (congestive) heart failure (principal); J96.01 Acute respiratory failure with hypoxia; A41.9 Sepsis, unspecified organism; R65.21 Severe sepsis with septic shock; N17.0 Acute kidney failure with tubular necrosis; G93.41 Metabolic encephalopathy; L89.153 Pressure ulcer of sacral region, stage 3; J18.9 Pneumonia, unspecified organism; E87.1 Hypo-osmolality and hyponatremia; I13.0 Hypertensive heart and chronic kidney disease with heart failure and stage 1 through stage 4 chronic kidney disease, or unspecified chronic kidney disease; I48.92 Unspecified atrial flutter; L03.116 Cellulitis of left lower limb; L03.115 Cellulitis of right lower limb; E87.2 Acidosis; N39.0 Urinary tract infection, site not specified; J98.11 Atelectasis; K56.7 Ileus, unspecified; I48.2 Chronic atrial fibrillation; D63.1 Anemia in chronic kidney disease; D69.6 Thrombocytopenia, unspecified; E11.22 Type 2 diabetes mellitus with diabetic chronic kidney disease; E78.5 Hyperlipidemia, unspecified; E87.5 Hyperkalemia; E66.9 Obesity, unspecified; F32.9 Major depressive disorder, single episode, unspecified; F03.90 Unspecified dementia, unspecified severity, without behavioral disturbance, psychotic disturbance, mood disturbance, and anxiety; I25.10 Atherosclerotic heart disease of native coronary artery without angina pectoris; I27.20 Pulmonary hypertension, unspecified; I46.9 Cardiac arrest, cause unspecified; I25.5 Ischemic cardiomyopathy; L89.899 Pressure ulcer of other site, unspecified stage; M54.9 Dorsalgia, unspecified; N18.3 Chronic kidney disease, stage 3 (moderate); B96.20 Unspecified Escherichia coli [E. coli] as the cause of diseases classified elsewhere; R13.10 Dysphagia, unspecified; R41.82 Altered mental status, unspecified; R00.1 Bradycardia, unspecified; R09.02 Hypoxemia; K59.00 Constipation, unspecified; Z66 Do not resuscitate; Z51.5 Encounter for palliative care; Z68.33 Body mass index [BMI] 33.0-33.9, adult; Z95.1 Presence of aortocoronary bypass graft; Z95.5 Presence of coronary angioplasty implant and graft; Z79.01 Long term (current) use of anticoagulants; Z79.82 Long term (current) use of aspirin; Z79.4 Long term (current) use of insulin; Z79.891 Long term (current) use of opiate analgesic
CPT/HCPCS: 31500; 36415; 36600; 71045; 72072; 72100; 72170; 74018; 76604; 76700; 76775; 80048; 80053; 80061; 80162; 80307; 81003; 82140; 82378; 82533; 82550; 82553; 82570; 82803; 82962; 83036; 83540; 83605; 83690; 83735; 83880; 84100; 84134; 84300; 84443; 84484; 84560; 85025; 85378; 85610; 85730; 86704; 86709; 86803; 87040; 87081; 87086; 87340; 89190; 90935; 92610; 92950; 93005; 93306; 94002; 94003; 94640; 94660; 94664; 94770; 96374; 96375; 97110; 97163; 97164; 99291-25